=== PATIENT | male | born 1955 | race Caucasian/White ===

== ENCOUNTER 2023-02-06 23:43 | Observation (INO) ==
[2023-02-07 00:05] VITALS: BMI 30.8
[2023-02-07 00:14] LABS: BASOPHILS % (AUTO) 0.4 % (0.2-1.0); EOSINOPHILS % (AUTO) 0.6 % (0.9-2.9); HEMATOCRIT 40.7 % (42.0-54.0); LYMPHOCYTES # (AUTO) 1.7 X10^3/uL (1.3-2.9); LYMPHOCYTES % (AUTO) 27.4 % (21.0-51.0); MEAN CORPUSCULAR HEMOGLOBIN 31.2 pg (27.0-34.0); MEAN CORPUSCULAR HGB CONC 34.5 g/dL (33.0-35.0); MEAN CORPUSCULAR VOLUME 90.3 fL (80.0-100.0); MONOCYTES # (AUTO) 0.7 x10^3/uL (0.3-0.8); MONOCYTES % (AUTO) 11.2 % (0.0-13.0); NEUTROPHILS # (AUTO) 3.8 x10^3/uL (2.2-4.8); NEUTROPHILS % (AUTO) 60.4 % (42.0-75.0); PLATELET COUNT 134 X10^3/uL (150.0-450.0); RED BLOOD COUNT 4.51 X10^6/uL (4.7-6.0); RED CELL DISTRIBUTION WIDTH 13.4 % (11.6-16.5); WHITE BLOOD COUNT 6.4 X10^3/uL (3.6-10.0)
--- NOTE | 2023-02-07 00:16 | EKG ---
Test Reason : weakness Blood Pressure : */* mmHG Vent. Rate : 75 BPM Atrial Rate : 75 BPM P-R Int : 182 ms QRS Dur : 142 ms QT Int : 430 ms P-R-T Axes : 24 -30 102 degrees QTc Int : 480 ms Sinus rhythm with fusion complexes and premature atrial complexes with aberrant conduction Left axis deviation Left bundle branch block Abnormal ECG No previous ECGs available Confirmed by Sujit Patino ([id number]) on 02/07/2023 7:33:58 AM Referred By: Confirmed By: Sujit Patino
--- NOTE | 2023-02-07 00:26 | DR.DIZZY ---
HPI Time seen Time Seen by Provider: 02/07/23 00:05 PCP Primary Care Physician: ZACHERY Complaint Chief Complaint Doctor Comments: WEAKNESS AND NUMBNESS TO LEFT ARM AND LEG FOR 10 HOURS. HAS H/O CVA 10 YEARS AGO WITH R SIDE WEAKNESS. Chief Complaint:: PT IN ED VIA WHEELCHAIR WITH C/O WEAKNESS AND NUMBNESS TO LEFT ARM AND LEG SINCE AROUND 2:30PM. PT STATES HE WAS HOLDING HIS TABLET WHEN THE LEFT SIDE OF HIS BODY WENT NUMB AND WEAK, HE DROPPED HIS TABLET AND FELL. COVID-19 Coronavirus risk:travel/contact w/high risk person: No Has patient experienced Coronavirus symptoms: No Source History Provided: Patient and Family Member Mode of Arrival Mode of Arrival: Wheelchair Timing Onset of Chief Complaint: 02/06/23 Context Stroke Symptoms: Weakness of limb PMH PMH Past Medical History: Yes Past Medical History: Anxiety, Arthritis, COPD, Coronary Artery Disease, CVA, Dyslipidemia, Migraines, GERD, Headaches, Hypertension, RI and Seizures Past Medical History Comment: OSTEOPOROSIS BPH SUBDURAL HEMATOMA Past Surgical History: Yes Surgical History: CABG/Valve Surgery, Ortho Surgery and Tonsillectomy Past Surgical History Comment: BILATERAL KNEES LEFT FOOT PPM Family History History of Family Medical Conditions: Yes Family Medical History: Diabetes Mellitus, RI, Coronary Artery Disease, Heart Failure and Hypertension Social History Does patient currently use any type of tobacco product: Yes Have you used tobacco products in the last 12 months: Yes Type of Tobacco Use: Cigars Does any household member use tobacco: No Alcohol Use: None Do you use any recreational Drugs:: No Lives With: Spouse Lives Where: Home Travel Risk Coronavirus risk:travel/contact w/high risk person: No Has patient experienced Coronavirus symptoms: No Infectious screening In the last 2 months have you had wt loss of >10#?: NO Have you had fever, night sweats or hemotysis?: No Have you traveled outside the country in the last 6 months?: No Isolation: Standard ROS Review of Systems Constitutional: Other (LEFT SIDED WEAKNESS) Eyes: No Symptoms Reported ENTM: No Symptoms Reported Respiratoy: No Symptoms Reported Cardiovascular: No Symptoms Reported Gastrointestinal/Abdominal: No Symptoms Reported Genitourinary: No Symptoms Reported Neurological: Other (LEFT SIDE WEAKNESS) Musculoskeletal: No Symptoms Reported Integumentary: No Symptoms Reported Hematologic/Lymphatic: No Symptoms Reported Endocrine: No Symptoms Reported Psychiatric: No Symptoms Reported PE Vital Signs Vitals: Vital Signs Temperature 98.0 F Pulse Rate [Right] 63 Pulse Rate [Right] 63 Pulse Rate [Right] 80 Pulse Rate 84 Respiratory Rate 20 Respiratory Rate 20 Respiratory Rate 20 Blood Pressure [Left Arm] 127/72 Blood Pressure [Left Arm] 124/78 Blood Pressure [Left Arm] 119/77 Blood Pressure [Left Arm] 143/81 Blood Pressure 161/89 O2 Sat by Pulse Oximetry 92 O2 Sat by Pulse Oximetry 95 General Limitations: Physical Limitation (MINIMAL PHYSICL LIMITATIONS,DID HAVE SOME L SIDE WEAKNESS) General Appearance: In Distress (MILD DISTRESS) Head Head Exam: Normal Inspection, Atraumatic and Normocephalic Eyes Eye exam: Normal Appearance, PERRL and EOMI Pupils: Regular, Round: Bilateral Sclera/Conjunctival: Normal Inspection: Bilateral ENT ENT Exam: Normal Exam, Normal Oropharynx and Normal External Ear Exam Neck Neck Exam: Normal Inspection, Full ROM and Trachea Midline Chest Chest Inspection: Normal Inspection and Symmetric Chest Wall Rise Respiratory Respiratory Exam: Normal Lung Sounds Bilat Cardiovascular Cardiovascular Exam: Regular Rate and Normal Rhythm Abdominal Exam Abdominal Exam: Normal Inspection, Normal Bowel Sounds and Soft Rectal Rectal Exam: Deferred Neurologic Neurological Exam: Alert, Oriented X3 and CN II-XII Intact Patient Oriented To: Person, Place and Time Speech: Fluid Speech Cranial Nerve Exam: EOM Function (II, III, IV, ): Normal Cerebellar Function: Finger to Nose: Left Abnormal (LEFT FINGER WENT PAST HIS NOSE) Cerebellar Function: Ataxic Gait Motor Strength - LUE: 4/5 Motor Strength - RUE: 5/5 Motor Strength - LLE: 4/5 Motor Strength - RLE: 5/5 Psychiatric Psychiatric Exam: Normal Affect Skin Skin Exam: Warm, Dry and Intact MDM Differential Diagnosis Differential Diagnosis: CVA, Dehydration, TIA and Central Vertigo COURSE Treatment Treatment: PATIENT REMAINED RELATIVELY STABLE DURING ER EVALUATION.CT OF BRAIN SHOWED NO ACUTE INTRACRANIAL PROCESS. SSUGGGEST MRI OF FOR FURTHER EVALUATION IF CLIINICAL EVALUATION SUPPROTS,PATIENT IS NOT CANDIDATE FOR MRI SINCE HE HAS A PACEMAKER. THE PATIENT CAN GET A REPEAT CT OF BRAIN IN 24 HOURS AND DOO NEURO CHECKS. SPOKE TO DR GRACIA AT 0322 AND HE ACCEPTED THE PATIENT TO OBSERVTION TO REPEAT CT OF BRAIN. PATIENT INITIALLY DID NOT WANT TO GO THIS ROUTE BUT HE CHANGED HIS MIND AFTER SPEAKING TO HIS COUSIN. ROR Labs Reviewed Laboratory Results Reviewed?: Yes Result Diagrams: 02/06/23 11:56 02/06/23 11:56 Laboratory: WBC 6.4 X10^3/uL (3.6-10.0) 02/06/23 11:56 RBC 4.51 X10^6/uL (4.7-6.0) L 02/06/23 11:56 Hgb 14.0 g/dL (13.5-18.0) 02/06/23 11:56 Hct 40.7 % (42.0-54.0) L 02/06/23 11:56 MCV 90.3 fL (80.0-100.0) 02/06/23 11:56 MCH 31.2 pg (27.0-34.0) 02/06/23 11:56 MCHC 34.5 g/dL (33.0-35.0) 02/06/23 11:56 RDW 13.4 % (11.6-16.5) 02/06/23 11:56 Plt Count 134 X10^3/uL (150.0-450.0) L 02/06/23 11:56 MPV 9.0 fL (7.4-11.0) 02/06/23 11:56 Neut % (Auto) 60.4 % (42.0-75.0) 02/06/23 11:56 Lymph % (Auto) 27.4 % (21.0-51.0) 02/06/23 11:56 [place] % (Auto) 11.2 % (0.0-13.0) 02/06/23 11:56 Eos % (Auto) 0.6 % (0.9-2.9) L 02/06/23 11:56 Baso % (Auto) 0.4 % (0.2-1.0) 02/06/23 11:56 Neut # (Auto) 3.8 x10^3/uL (2.2-4.8) 02/06/23 11:56 Lymph # (Auto) 1.7 X10^3/uL (1.3-2.9) 02/06/23 11:56 [place] # (Auto) 0.7 x10^3/uL (0.3-0.8) 02/06/23 11:56 Eos # (Auto) 0.0 x10^3/uL (0.0-0.2) 02/06/23 11:56 Baso # (Auto) 0.0 X10^3/uL (0.0-0.1) 02/06/23 11:56 Absolute Nucleated RBC 0.2 /100WBC 02/06/23 11:56 PT 13.2 SECONDS (11.8-14.3) 02/06/23 11:56 INR Target Range - 02/06/23 11:56 INR 1.02 (0.8-1.3) 02/06/23 11:56 APTT 28.3 SECONDS (22.9-36.5) 02/06/23 11:56 PTT Comment - 02/06/23 11:56 Sodium 139 mmol/L (136-145) 02/06/23 11:56 Corrected Sodium TNP 02/06/23 11:56 Potassium 3.4 mmol/L (3.5-5.1) L 02/06/23 11:56 Chloride 103 mmol/L (98-107) 02/06/23 11:56 Carbon Dioxide 26.6 mmol/L (21-32) 02/06/23 11:56 BUN 14 mg/dL (7-18) 02/06/23 11:56 Creatinine 1.39 mg/dL (0.70-1.30) H 02/06/23 11:56 Est GFR (MDRD) Af Amer > 60 (>60) 02/06/23 11:56 Est GFR (MDRD) Non-Af 54 (>60) L 02/06/23 11:56 Glucose 100 mg/dL (65-99) H 02/06/23 11:56 Calcium 8.5 mg/dL (8.5-10.1) 02/06/23 11:56 Corrected Calcium TNP 02/06/23 11:56 Total Bilirubin 0.60 mg/dL (0.2-1.0) 02/06/23 11:56 AST 15 Units/L (15-37) 02/06/23 11:56 ALT 17 Units/L (12-78) 02/06/23 11:56 Alkaline Phosphatase 75 Units/L (46-116) 02/06/23 11:56 Creatine Kinase 82 Units/L (39-308) 02/06/23 11:56 Troponin I High Sens 46.9 ng/L (4.0-60.0) 02/06/23 11:56 Total Protein 7.0 g/dL (6.4-8.2) 02/06/23 11:56 Albumin 4.2 g/dL (3.4-5.0) 02/06/23 11:56 Globulin 2.8 g/dL (2.5-4.5) 02/06/23 11:56 Albumin/Globulin Ratio 1.5 Ratio (1.1-2.1) 02/06/23 11:56 Opioid Opioid Risk Tool Age (Sy box if 16-45): No History of Preadolescent Sexual Abuse: No Total: 0 Total Score Risk Category: Low Risk Copyright: Jl PADILLA predicting aberrant behaviors Discharge Plan Diagnosis Discharge Problem: Brain TIA, Mild congestive heart failure Discharge Plan Patient Disposition: 09 ADMITTED INPATIENT Condition: Stable Prescriptions: No Action tamsulosin 0.4 mg capsule 0.4 mg PO QHS 30 Days Qty: 30 6RF diclofenac sodium 75 mg tablet,delayed release (DR/EC) 75 mg PO BID 30 Days Qty: 60 3RF clonidine HCl 0.1 mg tablet 0.1 mg PO TID Qty: 90 3RF fenofibrate nanocrystallized 145 mg tablet 145 mg PO QDAY Qty: 30 3RF simvastatin 80 mg tablet 80 mg PO QHS Qty: 30 3RF clopidogrel 75 mg tablet 75 mg PO QDAY Qty: 30 3RF budesonide-formoterol [Symbicort] 160-4.5 mcg/actuation HFA aerosol inhaler 2 puff inhalation BID Qty: 10.2 3RF Rx Instructions: 2 Puffs two times daily. spironolactone 25 mg tablet 25 mg PO QDAY Qty: 30 5RF carvedilol 12.5 mg tablet 12.5 mg PO BID Qty: 60 5RF tizanidine 4 mg tablet 4 mg PO Q8H PRN (Reason: muscle spasticity) Qty: 90 5RF divalproex 250 mg tablet extended release 24 hr 750 mg PO QDAY Qty: 90 3RF montelukast 10 mg tablet 10 mg PO QDAY Qty: 90 3RF fluocinonide 0.05 % solution 1 applic topical BID-QID PRN (Reason: rash) Qty: 60 3RF Rx Instructions: Apply 2-3 mg to affected area topically every day. oxycodone-acetaminophen 10-325 mg tablet 1 tab PO Q6H MDD 4 PRN (Reason: pain) 30 Days Qty: 120 0RF nitroglycerin 0.4 mg tablet, sublingual 0.4 mg sublingual Q5-15M Qty: 100 2RF enalapril maleate 10 mg tablet 1 tab PO QDAY amlodipine 10 mg tablet 1 tab PO QDAY Health Concerns: Post Hospitalization: new medications and changes needed to prevent readmission or further decline. Pt educated and given instructions on all concerns. Plan of Treatment: Continue with present treatment and follow up plan. Pt is to keep follow up appointment as instructed and take medications as ordered. Orders to Discharge Patient Discharge Orders: Transfer (Routine); Ordered 02/07/23 Ordered By: Hunter Noyola Follow ups/Referrals Follow ups/Referrals: TONY BINGHAM [Primary Care Provider] - 3 days
[2023-02-07 00:29] LABS: INR 1.02 (0.8-1.3)
[2023-02-07 00:37] LABS: ALANINE AMINOTRANSFERASE 17 Units/L (12-78); ALBUMIN 4.2 g/dL (3.4-5.0); ALKALINE PHOSPHATASE 75 Units/L (46-116); ASPARTATE AMINO TRANSFERASE 15 Units/L (15-37); BLOOD UREA NITROGEN 14 mg/dL (7-18); CALCIUM 8.5 mg/dL (8.5-10.1); CARBON DIOXIDE 26.6 mmol/L (21-32); CHLORIDE 103 mmol/L (98-107); CREATINE KINASE 82 Units/L (39-308); CREATININE 1.39 mg/dL (0.70-1.30); GLUCOSE 100 mg/dL (65-99); POTASSIUM 3.4 mmol/L (3.5-5.1); SODIUM 139 mmol/L (136-145); eGFR NON BLACK RACES 54 (>60)
--- NOTE | 2023-02-07 00:41 | CT ---
HISTORYLT SIDE WEAKNESS, possible strokeSTUDYBRAIN W/O CONCOMPARISONNoneTECHNIQUEMult iple axial images of the head without contrast. Dose reduction techniques including Automated Exposure Control (AEC) and adjustment of mA and kV were utilized.FINDINGSGeneralized brain atrophy. Microvascular ischemic changes in the bilateral white matter. Hypodensity right conte radiata suggesting remote ischemia. Prior left frontal and parietal craniotomy defects. Intracranial atherosclerotic calcifications. Middle ears are clear. No sinus air-fluid levels.IMPRESSIONNo acute intracranial process. Chronic brain changes.Electronically signed by: Zachariah Yoder (Feb 07, 2023 00:40:24)
--- NOTE | 2023-02-07 01:33 | RAD ---
HISTORYLT SIDE WEAKNESS C/O WEAKNESS AND NUMBNESS TO LEFT ARM AND LEG SINCE AROUND 2:30PM. PT STATES HE WAS HOLDING HIS TABLET WHEN THE LEFT SIDE OF HIS BODY WENT NUMB AND WEAK, HE DROPPED HIS TABLET AND FELL.STUDYCHEST, 1 VIEWCOMPARISONNoneFINDINGSPacemaker with power pack on the right. Median sternotomy wires. Midline trachea. The heart is enlarged. Pulmonary vascular congestion.IMPRESSIONCongestive heart failureElectronically signed by: Zachariah Yoder (Feb 07, 2023 01:31:19)
[2023-02-07] MEDS ORDERED: PATIENT'S HOME MEDICATION (Oxycodone-Acetaminophen 10-325 mg tablet) PO PRN (04:28)
[2023-02-07] MEDS ORDERED: ZANAFLEX PO PRN (04:28)
[2023-02-07] MEDS ORDERED: NORCO 10/325 TAB PO PRN (04:34)
[2023-02-07] MEDS ORDERED: NITROSTAT SL PRN (05:00)
[2023-02-07] MEDS: CATAPRES TAB 0.1 MG PO SCH ×3 (05:20→22:15)
[2023-02-07] MEDS: NICOTINE PATCH TD SCH (05:21)
[2023-02-07 05:52] LABS: BASOPHILS % (AUTO) 0.5 % (0.2-1.0); EOSINOPHILS # (AUTO) 0.1 x10^3/uL (0.0-0.2); EOSINOPHILS % (AUTO) 0.8 % (0.9-2.9); HEMATOCRIT 41.7 % (42.0-54.0); HEMOGLOBIN 14.5 g/dL (13.5-18.0); LYMPHOCYTES # (AUTO) 1.8 X10^3/uL (1.3-2.9); LYMPHOCYTES % (AUTO) 28.4 % (21.0-51.0); MEAN CORPUSCULAR HEMOGLOBIN 31.1 pg (27.0-34.0); MEAN CORPUSCULAR HGB CONC 34.7 g/dL (33.0-35.0); MEAN CORPUSCULAR VOLUME 89.8 fL (80.0-100.0); MEAN PLATELET VOLUME 9.4 fL (7.4-11.0); MONOCYTES # (AUTO) 0.7 x10^3/uL (0.3-0.8); MONOCYTES % (AUTO) 11.5 % (0.0-13.0); NEUTROPHILS # (AUTO) 3.7 x10^3/uL (2.2-4.8); NEUTROPHILS % (AUTO) 58.8 % (42.0-75.0); PLATELET COUNT 141 X10^3/uL (150.0-450.0); RED BLOOD COUNT 4.65 X10^6/uL (4.7-6.0); RED CELL DISTRIBUTION WIDTH 13.8 % (11.6-16.5); WHITE BLOOD COUNT 6.2 X10^3/uL (3.6-10.0)
[2023-02-07 05:58] LABS: ALANINE AMINOTRANSFERASE 18 Units/L (12-78); ALBUMIN 4.3 g/dL (3.4-5.0); ALKALINE PHOSPHATASE 78 Units/L (46-116); ASPARTATE AMINO TRANSFERASE 15 Units/L (15-37); BLOOD UREA NITROGEN 14 mg/dL (7-18); CALCIUM 8.7 mg/dL (8.5-10.1); CARBON DIOXIDE 26.6 mmol/L (21-32); CHLORIDE 102 mmol/L (98-107); CREATININE 1.27 mg/dL (0.70-1.30); GLUCOSE 101 mg/dL (65-99); MAGNESIUM 2.1 mg/dL (2.0-2.9); POTASSIUM 3.2 mmol/L (3.5-5.1); SODIUM 139 mmol/L (136-145); TOTAL PROTEIN 7.4 g/dL (6.4-8.2); eGFR NON BLACK RACES 60 (>60)
[2023-02-07 06:53] LABS: BILIRUBIN,URINE NEGATIVE (NEGATIVE); BLOOD/HEMOGLOBIN,URINE NEGATIVE (NEGATIVE); GLUCOSE, URINE NEGATIVE (NEGATIVE); KETONES,URINE NEGATIVE (NEGATIVE); LEUKOCYTE ESTERASE ,URINE NEGATIVE (NEGATIVE); NITRITES,URINE NEGATIVE (NEGATIVE); PH,URINE 6.5 (5.0 - 8.0); PROTEIN,URINE NEGATIVE (NEGATIVE); UROBILINOGEN,URINE NORMAL (NORMAL)
[2023-02-07 06:55] LABS: APPEARANCE,URINE CLEAR (CLEAR); COLOR,URINE STRAW (YELLOW)
[2023-02-07] MEDS ORDERED: CONSULT PHARMACY - POTASSIUM & MAGNESIUM XX SCH (07:00)
[2023-02-07] MEDS: PULMICORT NEB TX 0.5 MG NEB SCH ×2 (08:54→20:30)
[2023-02-07] MEDS: PROVENTIL NEB TX 0.083% 2.5MG/ 3ML NEB SCH ×2 (08:54→20:30)
[2023-02-07] MEDS ORDERED: PATIENT'S HOME MEDICATION (Budesonide-Formoterol [Symbicort] 160-4.5 mcg/actuation HFA aer IN SCH (09:00)
[2023-02-07] MEDS ORDERED: NICOTINE PATCH TD SCH (09:00)
[2023-02-07] MEDS ORDERED: DICLOFENAC SODIUM 75 MG PO SCH (09:00)
[2023-02-07] MEDS ORDERED: DIVALPROEX 250 MG PO SCH (09:00)
[2023-02-07] MEDS: COREG TAB 12.5 MG PO SCH ×2 (09:36→20:44)
[2023-02-07] MEDS: TRICOR TAB 145 MG PO SCH (09:36)
[2023-02-07] MEDS: ALDACTONE TAB 25 MG PO SCH (09:36)
[2023-02-07] MEDS: SINGULAIR TAB 10 MG PO SCH (09:36)
[2023-02-07] MEDS: PLAVIX PO SCH (09:36)
[2023-02-07] MEDS: NORVASC TAB 10 MG PO SCH (09:36)
[2023-02-07] MEDS: K-DUR TAB 20 MEQ PO SCH ×2 (09:36→12:19)
[2023-02-07] MEDS: VASOTEC TAB 10 MG PO SCH (09:37)
[2023-02-07] MEDS ORDERED: DIVALPROEX 250 MG PO PRN (10:00)
[2023-02-07] MEDS ORDERED: PERCOCET TAB 5/325 MG PO PRN (10:00)
[2023-02-07] MEDS ORDERED: LASIX IVP SCH (11:00)
[2023-02-07] MEDS: PATIENT'S HOME MEDICATION PO PRN ×2 (16:30→22:00)
[2023-02-07] MEDS: ZOCOR TAB 40 MG PO SCH (20:45)
[2023-02-07] MEDS: FLOMAX PO SCH (20:45)
[2023-02-07] MEDS ORDERED: SIMVASTATIN 80 MG PO SCH (21:00)
--- NOTE | 2023-02-07 21:04 | DR.H&P ---
H&P - History & Physical for Day of: H&P Date: 02/07/23 - Chief Complaint Chief Complaint: WEAKNESS AND NUMBNESS TO LEFT ARM AND LEG - History of Present Illness History of Present Illness: IS A 67 YEAR OLD PATIENT OF . HE HAS A PMH OF ANXIETY, ARTHRITIS, COPD, CAD, CVA, DYSLIPIDEMIA, MIGRAINES, GERD, HEADACHES, HTN, [place], SEIZURES, OSTEOPOROSIS, CABG, TONSILLECTOMY, AND BILATERAL KNEE PAIN. HE PRESENTED TO THE ER WITH COMPLAINTS OF WEAKNESS AND NUMBNESS TO THE LEFT ARM AND LEG. HE REPORTS THAT SYMPTOMS STARTED ABOUT 10 HOURS PRIOR TO ARRIVAL. HE REPORTS THAT HE WAS STANDING UP HOLDING HIS TABLET WHEN THE SYMPTOMS STARTED. HE DROPPED THE TABLET AND FELL. HE REPORTS HAVING UNSTEADY GAIT SINCE THEN. HE DENIES CHEST PAIN OR SHORTNESS OF BREATH. ON ARRIVAL, HIS VITALS WERE: 98.0-84-20-95%-161/89. LABS WERE OBTAINED. WBC 6.4, RBC 4.51, HGB 14.0, HCT 40.7, PLT COUNT 134, PT 132.2, INR 1.02, SODIUM 139, POTASSIUM 3.4, CHLORIDE 103, BUN 14, CREATININE 1.39, GLUCOSE 100, CALCIUM 8.5, TOTAL BILI 0.60, AST 15, ALT 17, ALK PHOS 75, CREATINE KINASE 82, TROPONIN 46.9, TOTAL PROTEIN 7.0, ALBUMIN 4.2. A URINALYSIS WAS OBTAINED AND WAS UNREMARKABLE. A BRAIN CT WAS OBTAINED AND REVEALED: No acute intracranial process. Chronic brain changes. A CHEST XRAY WAS OBTAINED AND REVEALED: Congestive heart failure. EKG WAS OBTAINED AND REVEALED: SINUS RHYTHM WITH FUSION COMPLEXES AND PREMATURE ATRIAL COMPLEXES WITH ABERRANT CONDUCTION. HR 75 BPM. HE WAS ADMITTED TO THE HOSPTIAL FOR FURTHER EVALUATION AND TREATMENT OF TIA, MILD CHF, AND HYPOKALEMIA. HE WAS STARTED ON LASIX 40MG IV DAILY, ALBUTEROL NEBS BID, PULMICORT NEBS BID, NICOTINE PATCH 21MG DAILY, AND HIS HOME MEDICATIONS WERE RESUMED. HOME MEDS INCLUDE: NORVASC, COREG, CATAPRES, PLAVIX, VASOTEC, TRICOR, SINGULAIR, NITROSTAT PRN, ZOCOR, ALDACTONE, FLOMAX, ZANAFLEX, PERCOCET, DIVALPROEX. OTHERWISE, WE WILL FOLLOW-UP WITH AM LABS AND CHEST XRAY AND CONTINUE TO MONITOR. TIME SPENT ON CLINICAL ASSESSMENT, REVIEWING LABS AND IMAGING, DECISION MAKING, AND DOCUMENTATION GREATER THAN 75 MINUTES. - Past Medical History Past Medical History: [place], Coronary Artery Disease, Hypertension, Dyslipidemia, Anxiety, CVA, Seizures, COPD, GERD, Arthritis, Migraines, Headaches - Past Surgical History Surgical History: CABG/Valve Surgery, Ortho Surgery, Tonsillectomy - Family History Family Medical History: Diabetes Mellitus, [place], Heart Failure, Hypertension - Social History Does patient currently use any type of tobacco product: Yes Have you used tobacco products in the last 12 months: Yes Type of Tobacco Use: Cigars Does any household member use tobacco: No Alcohol Use: None Drug Use: None - Review of Systems Constitutional: Weakness Eyes: No Symptoms Reported ENT: No Symptoms Reported Respiratory: No Symptoms Reported Cardiovascular: No Symptoms Reported Gastrointestinal: No Symptoms Reported Genitourinary: No Symptoms Reported Musculoskeletal: No Symptoms Reported Skin: No Symptoms Reported Neurological: See HPI, Weakness, Other (WEAKNESS AND NUMBNESS TO LEFT ARM AND LEG) - Physical Exam Vital Signs: Vital Signs Temperature 97.7 F Temperature 97.4 F Pulse Rate [Right] 86 Pulse Rate [Right] 76 Respiratory Rate 18 Respiratory Rate 18 Blood Pressure [Left Arm] 108/69 Blood Pressure [Left Arm] 121/74 O2 Sat by Pulse Oximetry 96 O2 Sat by Pulse Oximetry 94 Oriented: Normal Eyes: Normal Ear: Normal Nose: Normal Throat: Normal Respiratory: Diminished Throughout Cardiovascular: Normal : Normal Auscultation: Bowel Sounds: Normal Palpation: Normal Tenderness: Normal Skin: Normal Musculoskeletal: Left, Arm, Leg, Sensory Deficit Psychiatric: Normal Mood Description: Calm Affect: Normal Speech Pattern: Clear - Assessment/Plan (1) Brain TIA Status: Acute Plan: ADMIT, LASIX 40MG IV DAILY, ALBUTEROL NEBS BID, PULMICORT NEBS BID, NICOTINE PATCH 21MG DAILY, RESUME HOME MEDS (2) Mild congestive heart failure Status: Acute Plan: LASIX 40MG IV DAILY, RESUME COREG, ALDACTONE (3) Left-sided weakness Status: Acute (4) Unsteady gait Status: Acute (5) HTN (hypertension) Qualifiers: Hypertension type: primary hypertension Qualified Code(s): I10 - Essential (primary) hypertension Status: Chronic Plan: RESUME NORVASC, VASOTEC (6) Hyperlipidemia Qualifiers: Hyperlipidemia type: mixed hyperlipidemia Qualified Code(s): E78.2 - Mixed hyperlipidemia Status: Chronic Plan: CONTINUE TRICOR, ZOCOR (7) Coronary artery disease Qualifiers: Coronary Disease-Associated Artery/Lesion type: bypass graft [place] vs. transplanted heart: [place] heart Associated angina: without angina Qualified Code(s): I25.810 - Atherosclerosis of coronary artery bypass graft(s) without angina pectoris Status: Chronic Plan: CONTINUE PLAVIX (8) BPH (benign prostatic hyperplasia) Qualifiers: Lower urinary tract symptom presence: symptoms absent Qualified Code(s): N40.0 - Benign prostatic hyperplasia without lower urinary tract symptoms Status: Chronic Plan: CONTINUE TAMSULOSIN (9) Seizure disorder Status: Chronic Plan: CONTINUE DIVALPROEX - Review H&P Reviewed: Yes Patient was examined?: Yes - Allergies Allergies/Adverse Reactions: Allergies Allergy/AdvReac Type Severity Reaction Status Date / Time codeine Allergy Unknown Verified 12/12/22 12:12 levofloxacin [Levaquin] Allergy Unknown Verified 12/12/22 12:12 morphine Allergy Unknown Verified 12/12/22 12:12 - Medications Home Medications: Home Medications Medication Instructions Recorded Confirmed amlodipine 10 mg tablet 1 tab PO QDAY 02/06/23 02/06/23 enalapril maleate 10 mg tablet 1 tab PO QDAY 02/06/23 02/06/23 Previous Rx's Medication Instructions Recorded tamsulosin 0.4 mg capsule 0.4 mg PO QHS 30 days #30 caps 10/10/22 clonidine HCl 0.1 mg tablet 0.1 mg PO TID #90 tabs 11/06/22 clopidogrel 75 mg tablet 75 mg PO QDAY #30 tabs 11/06/22 diclofenac sodium 75 mg 75 mg PO BID 30 days #60 tabs 11/06/22 tablet,delayed release fenofibrate nanocrystallized 145 145 mg PO QDAY #30 tabs 11/06/22 mg tablet simvastatin 80 mg tablet 80 mg PO QHS #30 tabs 11/06/22 budesonide-formoterol HFA 160 2 puff inhalation BID #10.2 grams 12/09/22 mcg-4.5 mcg/actuation aerosol inhaler (Symbicort) carvedilol 12.5 mg tablet 12.5 mg PO BID #60 tabs 12/10/22 spironolactone 25 mg tablet 25 mg PO QDAY #30 tabs 12/10/22 tizanidine 4 mg tablet 4 mg PO Q8H PRN muscle spasticity 12/10/22 #90 tabs divalproex 250 mg tablet,extended 750 mg PO QDAY #90 tabs 01/01/23 release 24 hr montelukast 10 mg tablet 10 mg PO QDAY #90 tabs 01/01/23 fluocinonide 0.05 % topical 1 applic topical BID-QID PRN rash 01/27/23 solution #60 mL nitroglycerin 0.4 mg sublingual 0.4 mg sublingual Q5-15M #100 tabs 01/29/23 tablet oxycodone-acetaminophen 10 mg-325 1 tab PO Q6H PRN pain 30 days #120 01/29/23 mg tablet tabs
[2023-02-08] MEDS: PATIENT'S HOME MEDICATION PO PRN ×4 (04:19→21:50)
[2023-02-08 05:12] LABS: BASOPHILS % (AUTO) 0.4 % (0.2-1.0); EOSINOPHILS % (AUTO) 0.7 % (0.9-2.9); HEMATOCRIT 37.9 % (42.0-54.0); HEMOGLOBIN 13.1 g/dL (13.5-18.0); LYMPHOCYTES # (AUTO) 1.8 X10^3/uL (1.3-2.9); MEAN CORPUSCULAR HEMOGLOBIN 31.1 pg (27.0-34.0); MEAN CORPUSCULAR HGB CONC 34.6 g/dL (33.0-35.0); MEAN CORPUSCULAR VOLUME 89.9 fL (80.0-100.0); MEAN PLATELET VOLUME 9.2 fL (7.4-11.0); MONOCYTES # (AUTO) 0.8 x10^3/uL (0.3-0.8); MONOCYTES % (AUTO) 13.5 % (0.0-13.0); NEUTROPHILS # (AUTO) 3.1 x10^3/uL (2.2-4.8); NEUTROPHILS % (AUTO) 53.4 % (42.0-75.0); PLATELET COUNT 129 X10^3/uL (150.0-450.0); RED BLOOD COUNT 4.21 X10^6/uL (4.7-6.0); RED CELL DISTRIBUTION WIDTH 13.8 % (11.6-16.5); WHITE BLOOD COUNT 5.8 X10^3/uL (3.6-10.0)
[2023-02-08 05:27] LABS: ALANINE AMINOTRANSFERASE 17 Units/L (12-78); ALBUMIN 3.9 g/dL (3.4-5.0); ALKALINE PHOSPHATASE 69 Units/L (46-116); ASPARTATE AMINO TRANSFERASE 14 Units/L (15-37); BLOOD UREA NITROGEN 23 mg/dL (7-18); CALCIUM 8.2 mg/dL (8.5-10.1); CARBON DIOXIDE 24.8 mmol/L (21-32); CHLORIDE 105 mmol/L (98-107); CREATININE 2.13 mg/dL (0.70-1.30); GLUCOSE 103 mg/dL (65-99); POTASSIUM 3.6 mmol/L (3.5-5.1); SODIUM 141 mmol/L (136-145); TOTAL PROTEIN 6.7 g/dL (6.4-8.2); eGFR NON BLACK RACES 33 (>60)
[2023-02-08] MEDS: CATAPRES TAB 0.1 MG PO SCH ×3 (06:09→20:59)
[2023-02-08] MEDS ORDERED: CONSULT PHARMACY - POTASSIUM & MAGNESIUM XX SCH (07:00)
[2023-02-08] MEDS: PULMICORT NEB TX 0.5 MG NEB SCH ×2 (08:50→20:08)
[2023-02-08] MEDS: PROVENTIL NEB TX 0.083% 2.5MG/ 3ML NEB SCH ×2 (08:50→20:08)
[2023-02-08] MEDS ORDERED: MICRO K EXTEN CAP 10 MEQ PO SCH (09:00)
--- NOTE | 2023-02-08 09:53 | RAD ---
HISTORYShortness of breathSTUDYCHEST, 1 [id number]/01/2023FINDINGSThe trachea is midline. The cardiac silhouette is enlarged with a tortuous thoracic aorta. Prior changes of median sternotomy are observed. A pacing device overlying the right hemithorax is observed. Increased interstitial changes with prominent vascular markings are observed consistent with underlying CHF.. The bony thorax is unremarkable.IMPRESSIONSlightly improved changes of CHF with discoid atelectasis of the left base.Electronically signed by: GEE STOVALL (Feb 08, 2023 09:52:12)
[2023-02-08] MEDS: ALDACTONE TAB 25 MG PO SCH (10:00)
[2023-02-08] MEDS: VASOTEC TAB 10 MG PO SCH (10:00)
[2023-02-08] MEDS: NORVASC TAB 10 MG PO SCH (10:00)
[2023-02-08] MEDS: TRICOR TAB 145 MG PO SCH (10:00)
[2023-02-08] MEDS: PLAVIX PO SCH (10:00)
[2023-02-08] MEDS: SINGULAIR TAB 10 MG PO SCH (10:00)
[2023-02-08] MEDS: COREG TAB 12.5 MG PO SCH ×2 (10:02→20:52)
[2023-02-08] MEDS: NICOTINE PATCH TD SCH (10:08)
--- NOTE | 2023-02-08 10:58 | PCM.PROG ---
Progress Note - Progress Note for Day of Date of Exam: 02/08/23 - Subjective Subjective: IS CURRENTLY OBSERVATION STATUS FOR TREATMENT OF BRAIN TIA, CONGESTIVE HEART FAILURE, LEFT SIDED WEAKNESS, LEFT SIDED PARASTHESIA, AND UNSTEADY GAIT. HE HAS A PMH OF HTN, CHF, PACEMAKER, HYPERLIPDEMIA, CAD, BPH, AND SEIZURE DISORDER. TODAY, HE IS ALERT AND ORIENTED, LYING IN BED ON MORNING ROUNDS. HE CONTINUES TO COMPLAIN OF WEAKNESS AND TINGLING OF THE LEFT UPPER AND LOWER EXTREMITY. HE DENIES SIGNIFICANT IMPROVEMENT IN TINGLING SINCE ADMISSION. HE DOES ADMIT TO SLIGHT IMPROVEMENT IN SHORTNESS OF BREATH TODAY. UPON EXAMINATION, PATIENT IS ABLE TO ANSWER QUESTIONS AND FOLLOW INSTRUCTIONS WITHOUT DIFFICULTY. HEART IS REGULAR IN RATE AND RHYTHM. BILATERAL LUNGS ARE NOTED WITH DIMINISHED LUNG SOUNDS THROUGHOUT. ABDOMEN IS ROUND, SOFT, AND NON-TENDER WITH NORMAL BOWEL SOUNDS NOTED IN ALL QUADRANTS. GOOD RANGE OF MOTION NOTED TO UPPER AND LOWER EXTREMITIES WITH NO EDEMA NOTED. HIS VITALS THIS MORNING ARE: 97.4-52-20-91%-119/71. LABS WERE OBTAINED. WBC 5.8, RBC 4.21, HGB 13.1, HCT 37.9, PLT COUNT 129, SODIUM 141, POTASSIUM 3.6, CHLORIDE 105, BUN 23, CREATININE 2.13, GLUCOSE 103, CALCIUM 8.2, AST 14, ALT 17, ALK PHOS 69, BNP 162, TOTAL PROTEIN 6.7. A CHEST XRAY WAS REPEATED THIS MORNING AND REVEALED: Slightly improved changes of CHF with discoid atelectasis of the left base. HE IS CURRENTLY RECEIVING LASIX 40MG IV DAILY, ALBUTEROL NEBS BID, PULMICORT NEBS BID, NICOTINE PATCH 21MG DAILY, AND HIS HOME MEDICATIONS WERE RESUMED. HOME MEDS INCLUDE: NORVASC, COREG, CATAPRES, PLAVIX, VASOTEC, TRICOR, SINGULAIR, NITROSTAT PRN, ZOCOR, ALDACTONE, FLOMAX, ZANAFLEX, PERCOCET, DIVALPROEX. DUE TO ELEVATED BUN/CREATININE TODAY, WE WILL DECREASE HIS LASIX TO 20MG IV DAILY. WE PLAN TO OBTAIN A CAROTID DOPPLER, ECHOCARDIOGRAM, AND REPEAT A BRAIN CT IN THE MORNING TO RULE OUT CVA. HE CAN NOT HAVE A MRI DUE TO THE PACEMAKER. OTHERWISE, WE WILL FOLLOW-UP WITH AM LABS AND CHEST XRAY AND CONTINUE TO MONITOR. TIME SPENT ON CLINICAL ASSESSMENT, REVIEWING LABS AND IMAGING, DECISION MAKING, AND DOCUMENTATION GREATER THAN 45 MINUTES. - Past Medical Family Social History Past Med/Fam/Surg Hx: No changes since H&P Allergies: Allergies codeine Allergy (Unknown, Verified 12/12/22 12:12) Reason: Drug allergy levofloxacin [Levaquin] Allergy (Unknown, Verified 12/12/22 12:12) Reason: Drug allergy morphine Allergy (Unknown, Verified 12/12/22 12:12) Reason: Drug allergy - Review of Systems ROS: No change since H&P - Vital Signs and I&O's Vital Signs: Vital Signs Temperature 97.4 F Temperature 97.7 F Pulse Rate [Right] 52 Pulse Rate [Right] 73 Pulse Rate 83 Respiratory Rate 20 Respiratory Rate 20 Blood Pressure [Left Arm] 119/71 Blood Pressure [Left Arm] 99/65 O2 Sat by Pulse Oximetry 96 O2 Sat by Pulse Oximetry 91 O2 Sat by Pulse Oximetry 93 Intake and Output: Intake & Output 02/05/23 02/06/23 02/07/23 02/08/23 11:59 11:59 11:59 11:59 Intake Total 260 / 260 1180 / 1180 Output Total 300 / 300 1150 / 1150 Balance -40 / -40 - Physical Exam Oriented: Normal Eyes: Normal Ear: Normal Nose: Normal Throat: Normal Respiratory: Generalized, Diminished Cardiovascular: Normal : Normal Auscultation: Bowel Sounds: Normal Palpation: Normal Tenderness: Normal Skin: Normal Musculoskeletal: Left, Arm, Leg, Sensory Deficit Psychiatric: Normal Mood Description: Anxious Affect: Normal Speech Pattern: Clear, Appropriate - Laboratory and Diagnostics Result Diagrams: 02/08/23 04:36 02/08/23 04:36 Labs: Laboratory WBC 5.8 X10^3/uL (3.6-10.0) 02/08/23 04:36 RBC 4.21 X10^6/uL (4.7-6.0) L 02/08/23 04:36 Hgb 13.1 g/dL (13.5-18.0) L 02/08/23 04:36 Hct 37.9 % (42.0-54.0) L 02/08/23 04:36 MCV 89.9 fL (80.0-100.0) 02/08/23 04:36 MCH 31.1 pg (27.0-34.0) 02/08/23 04:36 MCHC 34.6 g/dL (33.0-35.0) 02/08/23 04:36 RDW 13.8 % (11.6-16.5) 02/08/23 04:36 Plt Count 129 X10^3/uL (150.0-450.0) L 02/08/23 04:36 MPV 9.2 fL (7.4-11.0) 02/08/23 04:36 Neut % (Auto) 53.4 % (42.0-75.0) 02/08/23 04:36 Lymph % (Auto) 32.0 % (21.0-51.0) 02/08/23 04:36 [place] % (Auto) 13.5 % (0.0-13.0) H 02/08/23 04:36 Eos % (Auto) 0.7 % (0.9-2.9) L 02/08/23 04:36 Baso % (Auto) 0.4 % (0.2-1.0) 02/08/23 04:36 Neut # (Auto) 3.1 x10^3/uL (2.2-4.8) 02/08/23 04:36 Lymph # (Auto) 1.8 X10^3/uL (1.3-2.9) 02/08/23 04:36 [place] # (Auto) 0.8 x10^3/uL (0.3-0.8) 02/08/23 04:36 Eos # (Auto) 0.0 x10^3/uL (0.0-0.2) 02/08/23 04:36 Baso # (Auto) 0.0 X10^3/uL (0.0-0.1) 02/08/23 04:36 Absolute Nucleated RBC 0.1 /100WBC 02/08/23 04:36 PT 13.2 SECONDS (11.8-14.3) 02/06/23 11:56 INR Target Range - 02/06/23 11:56 INR 1.02 (0.8-1.3) 02/06/23 11:56 APTT 28.3 SECONDS (22.9-36.5) 02/06/23 11:56 PTT Comment - 02/06/23 11:56 Sodium 141 mmol/L (136-145) 02/08/23 04:36 Corrected Sodium TNP 02/08/23 04:36 Potassium 3.6 mmol/L (3.5-5.1) 02/08/23 04:36 Chloride 105 mmol/L (98-107) 02/08/23 04:36 Carbon Dioxide 24.8 mmol/L (21-32) 02/08/23 04:36 BUN 23 mg/dL (7-18) H 02/08/23 04:36 Creatinine 2.13 mg/dL (0.70-1.30) H 02/08/23 04:36 Est GFR (MDRD) Af Amer 40 (>60) L 02/08/23 04:36 Est GFR (MDRD) Non-Af 33 (>60) L 02/08/23 04:36 Glucose 103 mg/dL (65-99) H 02/08/23 04:36 Calcium 8.2 mg/dL (8.5-10.1) L 02/08/23 04:36 Corrected Calcium TNP 02/08/23 04:36 Magnesium 2.1 mg/dL (2.0-2.9) 02/07/23 04:59 Total Bilirubin 0.50 mg/dL (0.2-1.0) 02/08/23 04:36 AST 14 Units/L (15-37) L 02/08/23 04:36 ALT 17 Units/L (12-78) 02/08/23 04:36 Alkaline Phosphatase 69 Units/L (46-116) 02/08/23 04:36 Creatine Kinase 82 Units/L (39-308) 02/06/23 11:56 Troponin I High Sens 46.9 ng/L (4.0-60.0) 02/06/23 11:56 B-Natriuretic Peptide 162 pg/mL (0-79) H 02/08/23 04:36 Total Protein 6.7 g/dL (6.4-8.2) 02/08/23 04:36 Albumin 3.9 g/dL (3.4-5.0) 02/08/23 04:36 Globulin 2.8 g/dL (2.5-4.5) 02/08/23 04:36 Albumin/Globulin Ratio 1.4 Ratio (1.1-2.1) 02/08/23 04:36 Specimen Type Clean catch urine 02/07/23 06:44 Urine Color Straw (YELLOW) 02/07/23 06:44 Urine Appearance Clear (CLEAR) 02/07/23 06:44 Urine pH 6.5 (5.0 - 8.0) 02/07/23 06:44 Ur Specific [place] 1.015 (1.000-1.030) 02/07/23 06:44 Urine Protein Negative (NEGATIVE) 02/07/23 06:44 Urine Glucose (UA) Negative (NEGATIVE) 02/07/23 06:44 Urine Ketones Negative (NEGATIVE) 02/07/23 06:44 Urine Blood Negative (NEGATIVE) 02/07/23 06:44 Urine Nitrite Negative (NEGATIVE) 02/07/23 06:44 Urine Bilirubin Negative (NEGATIVE) 02/07/23 06:44 Urine Urobilinogen Normal (NORMAL) 02/07/23 06:44 Ur Leukocyte Esterase Negative (NEGATIVE) 02/07/23 06:44 - Plan (1) Brain TIA Status: Acute Plan: ADMIT, LASIX 20MG IV DAILY, ALBUTEROL NEBS BID, PULMICORT NEBS BID, NICOTINE PATCH 21MG DAILY, RESUME HOME MEDS (2) Mild congestive heart failure Status: Acute Plan: LASIX 20MG IV DAILY, RESUME COREG, ALDACTONE (3) Left-sided weakness Status: Acute (4) Unsteady gait Status: Acute (5) HTN (hypertension) Status: Chronic Qualifiers: Hypertension type: primary hypertension Qualified Code(s): I10 - Essential (primary) hypertension Plan: RESUME NORVASC, VASOTEC (6) Hyperlipidemia Status: Chronic Qualifiers: Hyperlipidemia type: mixed hyperlipidemia Qualified Code(s): E78.2 - Mixed hyperlipidemia Plan: CONTINUE TRICOR, ZOCOR (7) Coronary artery disease Status: Chronic Qualifiers: Coronary Disease-Associated Artery/Lesion type: bypass graft [place] vs. transplanted heart: craig heart Associated angina: without angina Qualified Code(s): I25.810 - Atherosclerosis of coronary artery bypass graft(s) without angina pectoris Plan: CONTINUE PLAVIX (8) BPH (benign prostatic hyperplasia) Status: Chronic Qualifiers: Lower urinary tract symptom presence: symptoms absent Qualified Code(s): N40.0 - Benign prostatic hyperplasia without lower urinary tract symptoms Plan: CONTINUE TAMSULOSIN (9) Seizure disorder Status: Chronic Plan: CONTINUE DIVALPROEX
[2023-02-08] MEDS: FLOMAX PO SCH (20:52)
[2023-02-08] MEDS: ZOCOR TAB 40 MG PO SCH (20:53)
[2023-02-09 03:38] LABS: BASOPHILS # (AUTO) 0.1 X10^3/uL (0.0-0.1); BASOPHILS % (AUTO) 0.8 % (0.2-1.0); EOSINOPHILS # (AUTO) 0.1 x10^3/uL (0.0-0.2); EOSINOPHILS % (AUTO) 1.2 % (0.9-2.9); HEMATOCRIT 38.9 % (42.0-54.0); HEMOGLOBIN 13.4 g/dL (13.5-18.0); LYMPHOCYTES # (AUTO) 2.2 X10^3/uL (1.3-2.9); LYMPHOCYTES % (AUTO) 34.2 % (21.0-51.0); MEAN CORPUSCULAR HGB CONC 34.4 g/dL (33.0-35.0); MEAN CORPUSCULAR VOLUME 90.1 fL (80.0-100.0); MEAN PLATELET VOLUME 9.6 fL (7.4-11.0); MONOCYTES # (AUTO) 0.8 x10^3/uL (0.3-0.8); NEUTROPHILS # (AUTO) 3.4 x10^3/uL (2.2-4.8); NEUTROPHILS % (AUTO) 51.8 % (42.0-75.0); PLATELET COUNT 134 X10^3/uL (150.0-450.0); RED BLOOD COUNT 4.31 X10^6/uL (4.7-6.0); RED CELL DISTRIBUTION WIDTH 13.7 % (11.6-16.5); WHITE BLOOD COUNT 6.5 X10^3/uL (3.6-10.0)
[2023-02-09 03:47] LABS: ALANINE AMINOTRANSFERASE 18 Units/L (12-78); ALBUMIN 3.9 g/dL (3.4-5.0); ALKALINE PHOSPHATASE 69 Units/L (46-116); ASPARTATE AMINO TRANSFERASE 15 Units/L (15-37); BLOOD UREA NITROGEN 24 mg/dL (7-18); CALCIUM 8.4 mg/dL (8.5-10.1); CARBON DIOXIDE 24.6 mmol/L (21-32); CHLORIDE 104 mmol/L (98-107); COR NA(FOR HYPERGLY) 140 mmol/L (136-145); CREATININE 1.75 mg/dL (0.70-1.30); GLUCOSE 132 mg/dL (65-99); SODIUM 139 mmol/L (136-145); TOTAL PROTEIN 6.7 g/dL (6.4-8.2); eGFR NON BLACK RACES 41 (>60)
[2023-02-09] MEDS: PATIENT'S HOME MEDICATION PO PRN ×4 (03:50→22:15)
[2023-02-09] MEDS: VALIUM PO PRN (04:41)
[2023-02-09] MEDS: CATAPRES TAB 0.1 MG PO SCH ×3 (06:00→21:35)
[2023-02-09] MEDS ORDERED: LASIX ONE (07:26)
[2023-02-09] MEDS: PROVENTIL NEB TX 0.083% 2.5MG/ 3ML NEB SCH ×2 (09:10→20:20)
[2023-02-09] MEDS: PULMICORT NEB TX 0.5 MG NEB SCH ×2 (09:10→20:20)
[2023-02-09] MEDS: ALDACTONE TAB 25 MG PO SCH (10:00)
[2023-02-09] MEDS: VASOTEC TAB 10 MG PO SCH (10:00)
[2023-02-09] MEDS: NORVASC TAB 10 MG PO SCH (10:00)
[2023-02-09] MEDS: PLAVIX PO SCH (10:00)
[2023-02-09] MEDS: LASIX IVP SCH (10:17)
[2023-02-09] MEDS: TRICOR TAB 145 MG PO SCH (10:19)
[2023-02-09] MEDS: SINGULAIR TAB 10 MG PO SCH (10:19)
[2023-02-09] MEDS: COREG TAB 12.5 MG PO SCH ×2 (10:20→21:35)
[2023-02-09] MEDS: NICOTINE PATCH TD SCH (10:21)
--- NOTE | 2023-02-09 12:50 | CT ---
HISTORYTIA, MILD CHFSTUDYBRAIN W/O [id number] images through the head was performed without contrast. CT scan was performed following ALARA (As low as Reasonably Achievable).Coronal and Sagittal reformatted images were performed.FINDINGSThere is mild central and peripheral volume loss, there is periventricular hypo attenuations. There is an old lacunar infarct in the right anterior coronal radiata as well as in the anterior limb of the right internal capsule, there is no evidence of acute hemorrhage, or mass effect. There is cytotoxic edema in the posterior limb of the right internal capsule suspicious for an acute infarct.No evidence of acute fractures,the mastoid cells are clear. No evidence of sellar masses, the cervicocranial junction is unremarkable.IMPRESSIONAcute infarct involving the posterior limb of the right internal capsule. No acute hemorrhage.Electronically signed by: Monica Smart (Feb 09, 2023 12:49:35)
--- NOTE | 2023-02-09 13:48 | EKG ---
Test Reason : CVA, R/O AFIB Blood Pressure : */* mmHG Vent. Rate : 177 BPM Atrial Rate : * BPM P-R Int : * ms QRS Dur : 142 ms QT Int : 200 ms P-R-T Axes : * -31 -72 degrees QTc Int : 343 ms Atrial paced rhythm with ventricular fusion beats Left axis deviation Left bundle branch block Abnormal ECG When compared with ECG of 07-FEB-2023 00:14, Electronic ventricular pacemaker has replaced Sinus rhythm Vent. rate has increased BY 102 BPM Confirmed by Sujit Patino ([id number]) on 02/10/2023 5:52:26 PM Referred By: Confirmed By: Sujit Patino
--- NOTE | 2023-02-09 14:45 | VAS ---
HISTORYLT ARM AND LEG WEAKNESS, CVAConcern for carotid artery stenosis. [Carotid atherosclerosis].EXAM: BILATERAL DOPPLER CAROTID ULTRASOUND EXAMTechnique: Multiple loomis scale and color flow Doppler images of the right and left carotid arterial system were obtained. The vertebral arterial system was evaluated as well.Findings:Nonocclusive color flow Doppler is seen throughout the right and left carotid arterial system.No hemodynamically significant carotid arterial stenosis is seen based on velocity criteria. There is [mild] atherosclerosis and [mixed atherosclerotic] plaque formation of the bilateral carotid bulbs and ICAs with associated intimal thickening but [without] evidence for high-grade stenosis (>70%) or occlusion of the carotid arteries. The right and left vertebral artery demonstrate antegrade flow.IMPRESSION:[Mild] atherosclerosis and mixed plaque formation of the bilateral carotid bulbs and [in both] ICAs with associated carotid intimal thickening but without evidence for high-grade stenosis or occlusion of the carotid arteries, based on Doppler velocity criteria.Appropriate, antegrade, vertebral arterial flow.Peak right ICA velocity: 79 centimeter/seconds.Peak right CCA velocity: 92 centimeter/seconds.Peak left ICA velocity: 96 centimeter/seconds.Peak left CCA velocity: 104 centimeter/seconds.Right ICA to CCA ratio: 1.18.Left ICA to CCA ratio: 1.16.Electronically signed by: FARHAT CEJA III (Feb 09, 2023 14:44:27)
[2023-02-09] MEDS: LOVENOX INJ 40 MG SYR SC SCH (16:25)
--- NOTE | 2023-02-09 16:27 | RAD ---
HISTORYSOB TIA, MILD CHFSTUDYCHEST, 1 [id number]/2023FINDINGSThe trachea is midline. Mild cardiomegaly. Status post CABG. There is a right-sided pacemaker with 2 leads.. No evidence of pulmonary edema, no pleural effusions or pneumothorax. No dominant alveolar radiopacities.IMPRESSIONNo acute cardiopulmonary findings .Electronically signed by: Monica Smart (Feb 09, 2023 16:22:46)
--- NOTE | 2023-02-09 19:31 | EKG ---
Test Reason : MILD CHF, MULTIPLE PVCS Blood Pressure : */* mmHG Vent. Rate : 162 BPM Atrial Rate : * BPM P-R Int : * ms QRS Dur : 142 ms QT Int : 204 ms P-R-T Axes : * -42 131 degrees QTc Int : 334 ms Atrial paced with ventricular fusion beats Left axis deviation Left bundle branch block Abnormal ECG When compared with ECG of 09-FEB-2023 13:40, (Unconfirmed) premature ventricular complexes are now present Vent. rate has decreased BY 15 BPM Confirmed by Sujit Patino ([id number]) on 02/10/2023 5:51:29 PM Referred By: Confirmed By: Sujit Patino
[2023-02-09] MEDS: FLOMAX PO SCH (21:35)
[2023-02-09] MEDS: CRESTOR TAB 10 MG PO SCH (21:35)
--- NOTE | 2023-02-09 22:56 | PCM.PROG ---
Progress Note - Progress Note for Day of Date of Exam: 02/09/23 - Subjective Subjective: IS CURRENTLY OBSERVATION STATUS FOR TREATMENT OF BRAIN TIA, CONGESTIVE HEART FAILURE, LEFT SIDED WEAKNESS, LEFT SIDED PARASTHESIA, AND UNSTEADY GAIT. HE HAS A PMH OF HTN, CHF, PACEMAKER, HYPERLIPDEMIA, CAD, BPH, AND SEIZURE DISORDER. TODAY, HE IS ALERT AND ORIENTED, LYING IN BED ON MORNING ROUNDS. HE CONTINUES TO COMPLAIN OF WEAKNESS AND TINGLING OF THE LEFT UPPER AND LOWER EXTREMITY. HE REPORTS SLIGHT IMPROVEMENT IN SYMPTOMS TODAY. NURSES REPORT THAT PATIENT IS ABLE TO AMBULATE IN ROOM WITHOUT ASSISTANCE. HE IS STEADY ON AMBULATION. HE DENIES SHORTNESS OF BREATH THIS MORNING. UPON EXAMINATION, PATIENT IS ABLE TO ANSWER QUESTIONS AND FOLLOW INSTRUCTIONS WITHOUT DIFFICULTY. HEART IS REGULAR IN RATE AND RHYTHM. BILATERAL LUNGS ARE NOTED WITH DIMINISHED LUNG SOUNDS THROUGHOUT. ABDOMEN IS ROUND, SOFT, AND NON-TENDER WITH NORMAL BOWEL SOUNDS NOTED IN ALL QUADRANTS. GOOD RANGE OF MOTION NOTED TO UPPER AND LOWER EXTREMITIES WITH NO EDEMA NOTED. HIS VITALS THIS MORNING ARE: 97.4- 84/20/95%/135/83. LABS WERE OBTAINED. WBC 6.5, RBC 4.31, HGB 13.4, HCT 38.9, PLT COUNT 134, SODIUM 139, POTASSIUM 4.0, CHLORIDE 104, BUN 24, CREAITNINE 1.75, GLUCOSE 132, CALCIUM 8.4, AST 15, ALT 18, ALK PHOS 69, BNP 123, TOTAL PROTEIN 6.7. A CHEST XRAY WAS REPEATED THIS MORNING AND REVEALED: NO ACUTE CARDIOPULMONARY FINDINGS. A BRAIN CT WAS OBTAINED AND REVEALED: Acute infarct involving the posterior limb of the right internal capsule. No acute hemorrhage. A CAROTID ARTERY ULTRASOUND WAS OBTAINED AND REVEALED: [Mild] atherosclerosis and mixed plaque formation of the bilateral carotid bulbs and [in both] ICAs with associated carotid intimal thickening but without evidence for high-grade stenosis or occlusion of the carotid arteries, based on Doppler velocity criteria. AN ECHO WAS OBTAINED AND REVEALED: AN EJECTION FRACTION OF 44%. HE IS CURRENTLY RECEIVING LASIX 20MG IV DAILY, ALBUTEROL NEBS BID, PULMICORT NEBS BID, NICOTINE PATCH 21MG DAILY, AND HIS HOME MEDICATIONS WERE RESUMED. HOME MEDS INCLUDE: NORVASC, COREG, CATAPRES, PLAVIX, VASOTEC, TRICOR, SINGULAIR, NITROSTAT PRN, ZOCOR, ALDACTONE, FLOMAX, ZANAFLEX, PERCOCET, DIVALPROEX. TODAY, WE WILL ADD ECOTRIN 325MG DAILY AND ROSUVASTATIN 10MG HS. PHYSICAL THERAPY WILL WORK WITH HIM TODAY. OTHERWISE, WE WILL FOLLOW-UP WITH AM LABS AND CHEST XRAY AND CONTINUE TO MONITOR. TIME SPENT ON CLINICAL ASSESSMENT, REVIEWING LABS AND IMAGI NG, DECISION MAKING, AND DOCUMENTATION GREATER THAN 45 MINUTES. - Past Medical Family Social History Past Med/Fam/Surg Hx: No changes since H&P Allergies: Allergies codeine Allergy (Unknown, Verified 02/09/23 01:46) Reason: Drug allergy levofloxacin [Levaquin] Allergy (Unknown, Verified 02/09/23 01:46) Reason: Drug allergy morphine Allergy (Unknown, Verified 02/09/23 01:46) Reason: Drug allergy - Review of Systems ROS: No change since H&P - Vital Signs and I&O's Vital Signs: Vital Signs Temperature 98.1 F Pulse Rate [Right] 90 Pulse Rate 76 Respiratory Rate 19 Blood Pressure [Left Arm] 114/75 O2 Sat by Pulse Oximetry 93 O2 Sat by Pulse Oximetry 95 Intake and Output: Intake & Output 02/07/23 02/08/23 02/09/23 02/10/23 11:59 11:59 11:59 11:59 Intake Total 260 / 260 1180 / 1180 660 / 660 240 / 240 Output Total 300 / 300 1150 / 1150 1000 / 1000 Balance -40 / -40 30 / 30 -340 / -340 240 / 240 - Physical Exam Oriented: Normal Eyes: Normal Ear: Normal Nose: Normal Throat: Normal Respiratory: Generalized, Diminished Cardiovascular: Normal : Normal Auscultation: Bowel Sounds: Normal Palpation: Normal (A) Tenderness: Normal Skin: Normal Musculoskeletal: Left, Arm, Leg, Sensory Deficit Psychiatric: Normal Mood Description: Calm, Appropriate Affect: Normal Speech Pattern: Clear, Appropriate - Laboratory and Diagnostics Result Diagrams: 02/09/23 03:23 02/09/23 03:23 Labs: Laboratory WBC 6.5 X10^3/uL (3.6-10.0) 02/09/23 03:23 RBC 4.31 X10^6/uL (4.7-6.0) L 02/09/23 03:23 Hgb 13.4 g/dL (13.5-18.0) L 02/09/23 03: Hct 38.9 % (42.0-54.0) L 02/09/23 03: MCV 90.1 fL (80.0-100.0) 02/09/23 03: MCH 31.0 pg (27.0-34.0) 02/09/23 03: MCHC 34.4 g/dL (33.0-35.0) 02/09/23 03: RDW 13.7 % (11.6-16.5) 02/09/23 03: Plt Count 134 X10^3/uL (150.0-450.0) L 02/09/23: MPV 9.6 fL (7.4-11.0) 02/09/23: Neut % (Auto) 51.8 % (42.0-75.0) 02/09/23 03: Lymph % (Auto) 34.2 % (21.0-51.0) 02/09/23 03: [place] % (Auto) 12.0 % (0.0-13.0) 02/09/23 03: Eos % (Auto) 1.2 % (0.9-2.9) 02/09/23: Baso % (Auto) 0.8 % (0.2-1.0) 02/09/23: Neut # (Auto) 3.4 x10^3/uL (2.2-4.8) 02/09/23 03: Lymph # (Auto) 2.2 X10^3/uL (1.3-2.9) 02/09/23 03: [place] # (Auto) 0.8 x10^3/uL (0.3-0.8) 02/09/23: Eos # (Auto) 0.1 x10^3/uL (0.0-0.2) 02/09/23: Baso # (Auto) 0.1 X10^3/uL (0.0-0.1) 02/09/23 03: Absolute Nucleated RBC 0.0 /100WBC 02/09/23 03: PT 13.2 SECONDS (11.8-14.3) 02/06/23 11:56 INR Target Range - 02/06/23 11:56 INR 1.02 (0.8-1.3) 02/06/23 11:56 APTT 28.3 SECONDS (22.9-36.5) 02/06/23 11:56 PTT Comment - 02/06/23 11:56 Sodium 139 mmol/L (136-145) 02/09/23 03:23 Corrected Sodium 140 mmol/L (136-145) 02/09/23 03:23 Potassium 4.0 mmol/L (3.5-5.1) 02/09/23 03:23 Chloride 104 mmol/L (98-107) 02/09/23 03:23 Carbon Dioxide 24.6 mmol/L (21-32) 02/09/23 03:23 BUN 24 mg/dL (7-18) H 02/09/23 03:23 Creatinine 1.75 mg/dL (0.70-1.30) H 02/09/23 03:23 Est GFR (MDRD) Af Amer 50 (>60) L 02/09/23 03:23 Est GFR (MDRD) Non-Af 41 (>60) L 02/09/23 03:23 Glucose 132 mg/dL (65-99) H 02/09/23 03:23 Calcium 8.4 mg/dL (8.5-10.1) L 02/09/23 03:23 Corrected Calcium TNP 02/09/23 03:23 Magnesium 2.1 mg/dL (2.0-2.9) 02/07/23 04:59 Total Bilirubin 0.50 mg/dL (0.2-1.0) 02/09/23 03:23 AST 15 Units/L (15-37) 02/09/23 03:23 ALT 18 Units/L (12-78) 02/09/23 03:23 Alkaline Phosphatase 69 Units/L (46-116) 02/09/23 03:23 Creatine Kinase 82 Units/L (39-308) 02/06/23 11:56 Troponin I High Sens 46.9 ng/L (4.0-60.0) 02/06/23 11:56 B-Natriuretic Peptide 123 pg/mL (0-79) H 02/09/23 03:23 Total Protein 6.7 g/dL (6.4-8.2) 02/09/23 03:23 Albumin 3.9 g/dL (3.4-5.0) 02/09/23 03:23 Globulin 2.8 g/dL (2.5-4.5) 02/09/23 03:23 Albumin/Globulin Ratio 1.4 Ratio (1.1-2.1) 02/09/23 03:23 Specimen Type Clean catch urine 02/07/23 06:44 Urine Color Straw (YELLOW) 02/07/23 06:44 Urine Appearance Clear (CLEAR) 02/07/23 06:44 Urine pH 6.5 (5.0 - 8.0) 02/07/23 06:44 Ur Specific [place] 1.015 (1.000-1.030) 02/07/23 06:44 Urine Protein Negative (NEGATIVE) 02/07/23 06:44 Urine Glucose (UA) Negative (NEGATIVE) 02/07/23 06:44 Urine Ketones Negative (NEGATIVE) 02/07/23 06:44 Urine Blood Negative (NEGATIVE) 02/07/23 06:44 Urine Nitrite Negative (NEGATIVE) 02/07/23 06:44 Urine Bilirubin Negative (NEGATIVE) 02/07/23 06:44 Urine Urobilinogen Normal (NORMAL) 02/07/23 06:44 Ur Leukocyte Esterase Negative (NEGATIVE) 02/07/23 06:44 - Plan (1) Acute CVA (cerebrovascular accident) Status: Acute Plan: LASIX 20MG IV DAILY, NICOTINE PATCH 21MG DAILY, PLAVIX 75MG DAILY, ECOTRIN 325MG DAILY, ROSUVASTATIN 10MG HS, PT/OT, RESUME HOME MEDS (2) Mild congestive heart failure Status: Acute Plan: LASIX 20MG IV DAILY, RESUME COREG, ALDACTONE, ALBUTEROL NEBS BID, PULMICORT NEBS BID (3) Paresthesia of left arm and leg Status: Acute (4) Left-sided weakness Status: Acute (5) Unsteady gait Status: Acute Plan: PT/OT (6) HTN (hypertension) Status: Chronic Qualifiers: Hypertension type: primary hypertension Qualified Code(s): I10 - Essential (primary) hypertension Plan: RESUME NORVASC, VASOTEC (7) Hyperlipidemia Status: Chronic Qualifiers: Hyperlipidemia type: mixed hyperlipidemia Qualified Code(s): E78.2 - Mixed hyperlipidemia Plan: CONTINUE TRICOR, ZOCOR (8) Coronary artery disease Status: Chronic Qualifiers: Coronary Disease-Associated Artery/Lesion type: bypass graft [place] vs. transplanted heart: [place] heart Associated angina: without angina Qualified Code(s): I25.810 - Atherosclerosis of coronary artery bypass graft(s) without angina pectoris Plan: CONTINUE PLAVIX (9) BPH (benign prostatic hyperplasia) Status: Chronic Qualifiers: Lower urinary tract symptom presence: symptoms absent Qualified Code(s): N40.0 - Benign prostatic hyperplasia without lower urinary tract symptoms Plan: CONTINUE TAMSULOSIN (10) Seizure disorder Status: Chronic Plan: CONTINUE DIVALPROEX
[2023-02-10] MEDS: VALIUM PO PRN (01:14)
[2023-02-10] MEDS: PATIENT'S HOME MEDICATION PO PRN ×2 (04:35→22:06)
[2023-02-10] MEDS: CATAPRES TAB 0.1 MG PO SCH ×3 (05:30→21:04)
[2023-02-10 06:25] LABS: BASOPHILS % (AUTO) 0.3 % (0.2-1.0); EOSINOPHILS # (AUTO) 0.1 x10^3/uL (0.0-0.2); EOSINOPHILS % (AUTO) 1.1 % (0.9-2.9); HEMATOCRIT 38.5 % (42.0-54.0); HEMOGLOBIN 13.1 g/dL (13.5-18.0); LYMPHOCYTES # (AUTO) 1.9 X10^3/uL (1.3-2.9); LYMPHOCYTES % (AUTO) 35.4 % (21.0-51.0); MEAN CORPUSCULAR HEMOGLOBIN 30.8 pg (27.0-34.0); MEAN CORPUSCULAR HGB CONC 34.1 g/dL (33.0-35.0); MEAN CORPUSCULAR VOLUME 90.3 fL (80.0-100.0); MEAN PLATELET VOLUME 9.2 fL (7.4-11.0); MONOCYTES # (AUTO) 0.5 x10^3/uL (0.3-0.8); MONOCYTES % (AUTO) 9.4 % (0.0-13.0); NEUTROPHILS # (AUTO) 2.9 x10^3/uL (2.2-4.8); NEUTROPHILS % (AUTO) 53.8 % (42.0-75.0); PLATELET COUNT 121 X10^3/uL (150.0-450.0); RED BLOOD COUNT 4.26 X10^6/uL (4.7-6.0); RED CELL DISTRIBUTION WIDTH 13.8 % (11.6-16.5); WHITE BLOOD COUNT 5.4 X10^3/uL (3.6-10.0)
[2023-02-10 06:36] LABS: BLOOD UREA NITROGEN 26 mg/dL (7-18); CALCIUM 8.5 mg/dL (8.5-10.1); CARBON DIOXIDE 23.5 mmol/L (21-32); CHLORIDE 103 mmol/L (98-107); CREATININE 1.48 mg/dL (0.70-1.30); GLUCOSE 102 mg/dL (65-99); POTASSIUM 3.7 mmol/L (3.5-5.1); SODIUM 139 mmol/L (136-145); eGFR NON BLACK RACES 50 (>60)
[2023-02-10] MEDS: PROVENTIL NEB TX 0.083% 2.5MG/ 3ML NEB SCH ×2 (09:05→21:00)
[2023-02-10] MEDS: PULMICORT NEB TX 0.5 MG NEB SCH ×2 (09:05→21:00)
--- NOTE | 2023-02-10 09:19 | EKG ---
Test Reason : TIA, mild CHF, Blood Pressure : */* mmHG Vent. Rate : 182 BPM Atrial Rate : * BPM P-R Int : * ms QRS Dur : 148 ms QT Int : 212 ms P-R-T Axes : * -33 208 degrees QTc Int : 368 ms Atrial paced rhythm with some ventricular fusion beats. Left axis deviation Left bundle branch block Abnormal ECG When compared with ECG of 09-FEB-2023 19:21, (Unconfirmed) premature ventricular complexes are no longer present Vent. rate has increased BY 20 BPM Confirmed by Sujit Patino ([id number]) on 02/10/2023 5:49:54 PM Referred By: Confirmed By: Sujit Patino
[2023-02-10] MEDS: NORVASC TAB 10 MG PO SCH (09:25)
[2023-02-10] MEDS: ALDACTONE TAB 25 MG PO SCH (09:25)
[2023-02-10] MEDS: ECOTRIN TAB 325 MG PO SCH (09:25)
[2023-02-10] MEDS: TRICOR TAB 145 MG PO SCH (09:25)
[2023-02-10] MEDS: LASIX IVP SCH (09:25)
[2023-02-10] MEDS: PLAVIX PO SCH (09:25)
[2023-02-10] MEDS: COREG TAB 12.5 MG PO SCH ×2 (09:25→21:03)
[2023-02-10] MEDS: SINGULAIR TAB 10 MG PO SCH (09:25)
[2023-02-10] MEDS: NICOTINE PATCH TD SCH (09:25)
[2023-02-10] MEDS: LOVENOX INJ 40 MG SYR SC SCH (09:26)
[2023-02-10] MEDS: VASOTEC TAB 10 MG PO SCH (09:26)
--- NOTE | 2023-02-10 12:02 | RAD ---
HISTORYSOBSTUDYPortable AP chestCOMPARISONJuly 2022FINDINGSStable cardiac prominence with pacemaker and sternal wires. The lungs and pleural spaces are unremarkable. There is no evidence for pneumonia or CHF.IMPRESSIONNo change; no acute chest findings.Electronically signed by: SHELIA SMITH (Feb 10, 2023 12:00:37)
[2023-02-10] MEDS: CRESTOR TAB 10 MG PO SCH (21:03)
[2023-02-10] MEDS: FLOMAX PO SCH (21:04)
--- NOTE | 2023-02-10 22:33 | PCM.PROG ---
Progress Note - Progress Note for Day of Date of Exam: 02/10/23 - Subjective Subjective: IS CURRENTLY OBSERVATION STATUS FOR TREATMENT OF ACUTE CVA, CONGESTIVE HEART FAILURE, LEFT SIDED WEAKNESS, LEFT SIDED PARASTHESIA, AND UNSTEADY GAIT. HE HAS A PMH OF HTN, CHF, PACEMAKER, HYPERLIPDEMIA, CAD, BPH, AND SEIZURE DISORDER. TODAY, HE IS ALERT AND ORIENTED, LYING IN BED ON MORNING ROUNDS. HE CONTINUES TO COMPLAIN OF WEAKNESS AND TINGLING OF THE LEFT UPPER AND LOWER EXTREMITY. NURSES REPORT THAT PATIENT HAS BEEN AMBULATING IN THE ROOM WITH THE USE OF A WALKER. THEY REPORT THAT HE HAS IMPAIRED COORDINATION. HE DENIES SHORTNESS OF BREATH THIS MORNING. UPON EXAMINATION, PATIENT IS ABLE TO ANSWER QUESTIONS AND FOLLOW INSTRUCTIONS WITHOUT DIFFICULTY. HEART IS REGULAR IN RATE AND RHYTHM. BILATERAL LUNGS ARE NOTED WITH DIMINISHED LUNG SOUNDS THROUGHOUT. ABDOMEN IS ROUND, SOFT, AND NON-TENDER WITH NORMAL BOWEL SOUNDS NOTED IN ALL QUADRANTS. GOOD RANGE OF MOTION NOTED TO UPPER AND LOWER EXTREMITIES WITH NO EDEMA NOTED. HE HAS 5/5 POWER TO RIGHT UPPER AND LOWER EXTREMITIES. 3/5 POWER NOTED TO LEFT UPPER AND LOWER EXTREMITY. HIS VITALS THIS MORNING ARE: 97.6-64-20-91%-120/74. LABS WERE OBTAINED. WBC 5.4, RBC 4.26, HGB 13.1, HCT 38.5, PLT COUNT 121, SODIUM 139, POTASSIUM 3.7, CHLORIDE 103, BUN 26, CREATININE 1.48, GLUCOSE 102. A CHEST XRAY WAS REPEATED THIS MORNING AND REVEALED: NO ACUTE CARDIOPULMONARY FINDINGS. A BRAIN CT WAS OBTAINED AND REVEALED: Acute infarct in volving the posterior limb of the right internal capsule. No acute hemorrhage. A CAROTID ARTERY ULTRASOUND WAS OBTAINED AND REVEALED: No change; no acute chest findings. AN ECHO WAS OBTAINED AND REVEALED: AN EJECTION FRACTION OF 44%. HE IS CURRENTLY RECEIVING LASIX 20MG IV DAILY, ECOTRIN 325MG DAILY, ROSUVASTATIN 10MG HS, PLAVIX 75MG DAILY, ALBUTEROL NEBS BID, PULMICORT NEBS BID, NICOTINE PATCH 21 MG DAILY, AND HIS HOME MEDICATIONS WERE RESUMED. HOME MEDS INCLUDE: NORVASC, COREG, CATAPRES, VASOTEC, TRICOR, SINGULAIR, NITROSTAT PRN, ALDACTONE, FLOMAX, ZANAFLEX, PERCOCET, DIVALPROEX. WE WILL CONTINUE WITH CURRENT PLAN OF CARE TODAY. PHYSICAL THERAPY WILL CONTINUE TO WORK WITH HIM. OTHERWISE, WE WILL FOLLOW-UP WITH AM LABS AND CHEST XRAY AND CONTINUE TO MONITOR. TIME SPENT ON CLINICAL ASSESSMENT, REVIEWING LABS AND IMAGING, DECISION MAKING, AND DOCUMENTATION GREATER THAN 45 MINUTES. - Past Medical Family Social History Past Med/Fam/Surg Hx: No changes since H&P Allergies: Allergies codeine Allergy (Unknown, Verified 02/09/23 01:46) Reason: Drug allergy levofloxacin [Levaquin] Allergy (Unknown, Verified 02/09/23 01:46) Reason: Drug allergy morphine Allergy (Unknown, Verified 02/09/23 01:46) Reason: Drug allergy - Review of Systems ROS: No change since H&P - Vital Signs and I&O's Vital Signs: Vital Signs Temperature 97.6 F Temperature 97.7 F Pulse Rate [Right] 73 Pulse Rate [Right] 76 Respiratory Rate 18 Respiratory Rate 18 Blood Pressure [Left Arm] 110/68 Blood Pressure [Left Arm] 116/75 O2 Sat by Pulse Oximetry 97 O2 Sat by Pulse Oximetry 96 Intake and Output: Intake & Output 02/08/23 02/09/23 02/10/23 02/11/23 11:59 11:59 11:59 11:59 Intake Total 1180 / 1180 660 / 660 830 / 830 360 / 360 Output Total 1150 / 1150 1000 / 1000 700 / 700 600 / 600 Balance 30 / 30 -340 / -340 130 / 130 -240 / -240 - Physical Exam Oriented: Normal Eyes: Normal Ear: Normal Nose: Normal Throat: Normal Respiratory: Generalized, Diminished Cardiovascular: Normal : Normal Auscultation: Bowel Sounds: Normal Tenderness: Normal Skin: Normal Musculoskeletal: Left, Arm, Leg, Sensory Deficit Psychiatric: Normal Mood Description: Calm, Appropriate Affect: Normal Speech Pattern: Clear, Appropriate - Laboratory and Diagnostics Result Diagrams: 02/10/23 05:16 02/10/23 05:16 Labs: Laboratory WBC 5.4 X10^3/uL (3.6-10.0) 02/10/23 05:16 RBC 4.26 X10^6/uL (4.7-6.0) L 02/10/23 05:16 Hgb 13.1 g/dL (13.5-18.0) L 02/10/23 05:16 Hct 38.5 % (42.0-54.0) L 02/10/23 05:16 MCV 90.3 fL (80.0-100.0) 02/10/23 05:16 MCH 30.8 pg (27.0-34.0) 02/10/23 05:16 MCHC 34.1 g/dL (33.0-35.0) 02/10/23 05:16 RDW 13.8 % (11.6-16.5) 02/10/23 05:16 Plt Count 121 X10^3/uL (150.0-450.0) L 02/10/23 05:16 MPV 9.2 fL (7.4-11.0) 02/10/23 05:16 Neut % (Auto) 53.8 % (42.0-75.0) 02/10/23 05:16 Lymph % (Auto) 35.4 % (21.0-51.0) 02/10/23 05:16 [place] % (Auto) 9.4 % (0.0-13.0) 02/10/23 05:16 Eos % (Auto) 1.1 % (0.9-2.9) 02/10/23 05:16 Baso % (Auto) 0.3 % (0.2-1.0) 02/10/23 05:16 Neut # (Auto) 2.9 x10^3/uL (2.2-4.8) 02/10/23 05:16 Lymph # (Auto) 1.9 X10^3/uL (1.3-2.9) 02/10/23 05:16 [place] # (Auto) 0.5 x10^3/uL (0.3-0.8) 02/10/23 05:16 Eos # (Auto) 0.1 x10^3/uL (0.0-0.2) 02/10/23 05:16 Baso # (Auto) 0.0 X10^3/uL (0.0-0.1) 02/10/23 05:16 Absolute Nucleated RBC 0.0 /100WBC 02/10/23 05:16 PT 13.2 SECONDS (11.8-14.3) 02/06/23 11:56 INR Target Range - 02/06/23 11:56 INR 1.02 (0.8-1.3) 02/06/23 11:56 APTT 28.3 SECONDS (22.9-36.5) 02/06/23 11:56 PTT Comment - 02/06/23 11:56 Sodium 139 mmol/L (136-145) 02/10/23 05:16 Sodium Cancelled 02/10/23 05:16 Corrected Sodium Cancelled 02/10/23 05:16 Corrected Sodium TNP 02/10/23 05:16 Potassium 3.7 mmol/L (3.5-5.1) 02/10/23 05:16 Potassium Cancelled 02/10/23 05:16 Chloride 103 mmol/L (98-107) 02/10/23 05:16 Chloride Cancelled 02/10/23 05:16 Carbon Dioxide 23.5 mmol/L (21-32) 02/10/23 05:16 Carbon Dioxide Cancelled 02/10/23 05:16 BUN 26 mg/dL (7-18) H 02/10/23 05:16 BUN Cancelled 02/10/23 05:16 Creatinine 1.48 mg/dL (0.70-1.30) H 02/10/23 05:16 Creatinine Cancelled 02/10/23 05:16 Est GFR (MDRD) Af Amer > 60 (>60) 02/10/23 05:16 Est GFR (MDRD) Af Amer Cancelled 02/10/23 05:16 Est GFR (MDRD) Non-Af 50 (>60) L 02/10/23 05:16 Est GFR (MDRD) Non-Af Cancelled 02/10/23 05:16 Glucose 102 mg/dL (65-99) H 02/10/23 05:16 Glucose Cancelled 02/10/23 05:16 Calcium 8.5 mg/dL (8.5-10.1) 02/10/23 05:16 Calcium Cancelled 02/10/23 05:16 Corrected Calcium Cancelled 02/10/23 05:16 Magnesium 2.1 mg/dL (2.0-2.9) 02/07/23 04:59 Total Bilirubin Cancelled 02/10/23 05:16 AST Cancelled 02/10/23 05:16 ALT Cancelled 02/10/23 05:16 Alkaline Phosphatase Cancelled 02/10/23 05:16 Creatine Kinase 82 Units/L (39-308) 02/06/23 11:56 Troponin I High Sens 46.9 ng/L (4.0-60.0) 02/06/23 11:56 B-Natriuretic Peptide 177 pg/mL (0-79) H 02/10/23 05:16 Total Protein Cancelled 02/10/23 05:16 Albumin Cancelled 02/10/23 05:16 Globulin Cancelled 02/10/23 05:16 Albumin/Globulin Ratio Cancelled 02/10/23 05:16 Specimen Type Clean catch urine 02/07/23 06:44 Urine Color Straw (YELLOW) 02/07/23 06:44 Urine Appearance Clear (CLEAR) 02/07/23 06:44 Urine pH 6.5 (5.0 - 8.0) 02/07/23 06:44 Ur Specific [place] 1.015 (1.000-1.030) 02/07/23 06:44 Urine Protein Negative (NEGATIVE) 02/07/23 06:44 Urine Glucose (UA) Negative (NEGATIVE) 02/07/23 06:44 Urine Ketones Negative (NEGATIVE) 02/07/23 06:44 Urine Blood Negative (NEGATIVE) 02/07/23 06:44 Urine Nitrite Negative (NEGATIVE) 02/07/23 06:44 Urine Bilirubin Negative (NEGATIVE) 02/07/23 06:44 Urine Urobilinogen Normal (NORMAL) 02/07/23 06:44 Ur Leukocyte Esterase Negative (NEGATIVE) 02/07/23 06:44 - Plan (1) Acute CVA (cerebrovascular accident) Status: Acute Plan: LASIX 20MG IV DAILY, NICOTINE PATCH 21MG DAILY, PLAVIX 75MG DAILY, ECOTRIN 325MG DAILY, ROSUVASTATIN 10MG HS, PT/OT, RESUME HOME MEDS (2) Mild congestive heart failure Status: Acute Plan: LASIX 20MG IV DAILY, RESUME COREG, ALDACTONE, ALBUTEROL NEBS BID, PULMICORT NEBS BID (3) Paresthesia of left arm and leg Status: Acute (4) Left-sided weakness Status: Acute (5) Unsteady gait Status: Acute Plan: PT/OT (6) HTN (hypertension) Status: Chronic Qualifiers: Hypertension type: primary hypertension Qualified Code(s): I10 - Essential (primary) hypertension Plan: RESUME NORVASC, VASOTEC (7) Hyperlipidemia Status: Chronic Qualifiers: Hyperlipidemia type: mixed hyperlipidemia Qualified Code(s): E78.2 - Mixed hyperlipidemia Plan: CONTINUE TRICOR, ROSUVASTATIN (8) Coronary artery disease Status: Chronic Qualifiers: Coronary Disease-Associated Artery/Lesion type: bypass graft [place] vs. transplanted heart: [place] heart Associated angina: without angina Qualified Code(s): I25.810 - Atherosclerosis of coronary artery bypass graft(s) without angina pectoris Plan: CONTINUE PLAVIX (9) BPH (benign prostatic hyperplasia) Status: Chronic Qualifiers: Lower urinary tract symptom presence: symptoms absent Qualified Code(s): N40.0 - Benign prostatic hyperplasia without lower urinary tract symptoms Plan: CONTINUE TAMSULOSIN (10) Seizure disorder Status: Chronic Plan: CONTINUE DIVALPROEX
[2023-02-11] MEDS: VALIUM PO PRN (02:36)
[2023-02-11] MEDS: PATIENT'S HOME MEDICATION PO PRN ×2 (04:02→22:00)
[2023-02-11] MEDS: CATAPRES TAB 0.1 MG PO SCH (05:04)
[2023-02-11 06:18] LABS: BLOOD UREA NITROGEN 30 mg/dL (7-18); CALCIUM 8.6 mg/dL (8.5-10.1); CARBON DIOXIDE 23.2 mmol/L (21-32); CHLORIDE 104 mmol/L (98-107); COR NA(FOR HYPERGLY) 139 mmol/L (136-145); CREATININE 1.68 mg/dL (0.70-1.30); GLUCOSE 135 mg/dL (65-99); POTASSIUM 3.8 mmol/L (3.5-5.1); SODIUM 138 mmol/L (136-145); eGFR NON BLACK RACES 43 (>60)
[2023-02-11 06:20] LABS: BASOPHILS % (AUTO) 0.5 % (0.2-1.0); EOSINOPHILS # (AUTO) 0.1 x10^3/uL (0.0-0.2); EOSINOPHILS % (AUTO) 1.1 % (0.9-2.9); HEMATOCRIT 35.8 % (42.0-54.0); HEMOGLOBIN 12.3 g/dL (13.5-18.0); LYMPHOCYTES # (AUTO) 2.1 X10^3/uL (1.3-2.9); LYMPHOCYTES % (AUTO) 34.1 % (21.0-51.0); MEAN CORPUSCULAR HEMOGLOBIN 31.1 pg (27.0-34.0); MEAN CORPUSCULAR HGB CONC 34.3 g/dL (33.0-35.0); MEAN CORPUSCULAR VOLUME 90.7 fL (80.0-100.0); MEAN PLATELET VOLUME 9.7 fL (7.4-11.0); MONOCYTES # (AUTO) 0.7 x10^3/uL (0.3-0.8); MONOCYTES % (AUTO) 11.5 % (0.0-13.0); NEUTROPHILS # (AUTO) 3.2 x10^3/uL (2.2-4.8); NEUTROPHILS % (AUTO) 52.8 % (42.0-75.0); PLATELET COUNT 115 X10^3/uL (150.0-450.0); RED BLOOD COUNT 3.95 X10^6/uL (4.7-6.0); RED CELL DISTRIBUTION WIDTH 13.6 % (11.6-16.5)
[2023-02-11] MEDS: PROVENTIL NEB TX 0.083% 2.5MG/ 3ML NEB SCH ×2 (08:47→20:50)
[2023-02-11] MEDS: PULMICORT NEB TX 0.5 MG NEB SCH ×2 (08:47→20:50)
[2023-02-11] MEDS: LASIX IVP SCH (09:07)
[2023-02-11] MEDS: TRICOR TAB 145 MG PO SCH (09:07)
[2023-02-11] MEDS: SINGULAIR TAB 10 MG PO SCH (09:08)
[2023-02-11] MEDS: ALDACTONE TAB 25 MG PO SCH (09:08)
[2023-02-11] MEDS: PLAVIX PO SCH (09:08)
[2023-02-11] MEDS: NORVASC TAB 10 MG PO SCH (09:08)
[2023-02-11] MEDS: COREG TAB 12.5 MG PO SCH ×2 (09:08→21:19)
[2023-02-11] MEDS: LOVENOX INJ 40 MG SYR SC SCH (09:08)
[2023-02-11] MEDS: ECOTRIN TAB 325 MG PO SCH (09:08)
[2023-02-11] MEDS: VASOTEC TAB 10 MG PO SCH (09:09)
[2023-02-11] MEDS: NICOTINE PATCH TD SCH (09:09)
--- NOTE | 2023-02-11 12:28 | RAD ---
HISTORYShortness breathSTUDYCHEST, 1 [id number] trachea is midline. The cardiac silhouette is enlarged with a tortuous thoracic aorta. Prior changes of median sternotomy are noted. A pacing device overlying the right hemithorax is observed. The lungs are clear without focal infiltrate or effusion. The bony thorax is unremarkable.IMPRESSIONNo acute cardiopulmonary disease.Electronically signed by: GEE STOVALL (Feb 11, 2023 12:22:37)
--- NOTE | 2023-02-11 20:03 | PCM.PROG ---
Progress Note - Progress Note for Day of Date of Exam: 02/11/23 - Subjective Subjective: IS CURRENTLY OBSERVATION STATUS FOR TREATMENT OF ACUTE CVA, CONGESTIVE HEART FAILURE, LEFT SIDED WEAKNESS, LEFT SIDED PARASTHESIA, AND UNSTEADY GAIT. HE HAS A PMH OF HTN, CHF, PACEMAKER, HYPERLIPDEMIA, CAD, BPH, AND SEIZURE DISORDER. TODAY, HE IS ALERT AND ORIENTED, SITTING UP IN BED ON MORNING ROUNDS. HE CONTINUES TO COMPLAIN OF WEAKNESS AND TINGLING OF THE LEFT UPPER AND LOWER EXTREMITY. NURSES REPORT THAT PATIENT HAS BEEN AMBULATING IN THE ROOM WITH THE USE OF A WALKER. THEY REPORT THAT HE HAS IMPAIRED COORDINATION. HE DENIES SHORTNESS OF BREATH THIS MORNING. UPON EXAMINATION, PATIENT IS ABLE TO ANSWER QUESTIONS AND FOLLOW INSTRUCTIONS WITHOUT DIFFICULTY. HEART IS REGULAR IN RATE AND RHYTHM. BILATERAL LUNGS ARE NOTED WITH DIMINISHED LUNG SOUNDS THROUGHOUT. ABDOMEN IS ROUND, SOFT, AND NON-TENDER WITH NORMAL BOWEL SOUNDS NOTED IN ALL QUADRANTS. GOOD RANGE OF MOTION NOTED TO UPPER AND LOWER EXTREMITIES WITH NO EDEMA NOTED. HE HAS 5/5 POWER TO RIGHT UPPER AND LOWER EXTREMITIES. 3/5 POWER NOTED TO LEFT UPPER AND LOWER EXTREMITY. HIS VITALS THIS MORNING ARE: 97.1-64-18-93%-121/61. LABS WERE OBTAINED. WBC 6.0, RBC 3.95, HGB 12.3, HCT 35.8, PLT COUNT 115, SODIUM 138, POTASSIUM 3.8, CHLORIDE 104, CARBON DIOXIDE 23.2, BUN 30, CREATININE 1.68, GLUCOSE 135, CALCIUM 8.6, BNP 207. A CHEST XRAY WAS REPEATED THIS MORNING AND REVEALED: NO ACUTE CARDIOPULMONARY DISEASE. HE IS CURRENTLY RECEIVING LASIX 20MG IV DAILY, ECOTRIN 325MG DAILY, ROSUVASTATIN 10MG HS, PLAVIX 75MG DAILY, ALBUTEROL NEBS BID, PULMICORT NEBS BID, NICOTINE PATCH 21MG DAILY, AND HIS HOME MEDICATIONS WERE RESUMED. HOME MEDS INCLUDE: NORVASC, COREG, CATAPRES, VASOTEC, TRICOR, SINGULAIR, NITROSTAT PRN, ALDACTONE, FLOMAX, ZANAFLEX, PERCOCET, DIVALPROEX. WE WILL CONTINUE WITH CURRENT PLAN OF CARE TODAY. PATIENT REQUEST IN FACILITY REHAB. HE REPORTS THAT HE IS AFRAID THAT HE WILL NOT BE ABLE TO PERFORM ADLs DUE TO LIVING AT HOME ALONE. WE WILL ATTEMPT PLACEMENT. PHYSICAL THERAPY WILL CONTINUE TO WORK WITH HIM TODAY. OTHERWISE, WE WILL FOLLOW-UP WITH AM LABS AND CHEST XRAY AND CONTINUE TO MONITOR. TIME SPENT ON CLINICAL ASSESSMENT, REVIEWING LABS AND IMAGING, DECISION MAKING, AND DOCUMENTATION GREATER THAN 45 MINUTES. - Past Medical Family Social History Past Med/Fam/Surg Hx: No changes since H&P Allergies: Allergies codeine Allergy (Unknown, Verified 02/09/23 01:46) Reason: Drug allergy levofloxacin [Levaquin] Allergy (Unknown, Verified 02/09/23 01:46) Reason: Drug allergy morphine Allergy (Unknown, Verified 02/09/23 01:46) Reason: Drug allergy - Review of Systems ROS: No change since H&P - Vital Signs and I&O's Vital Signs: Vital Signs Temperature 98.3 F Temperature 97.9 F Pulse Rate [Right] 70 Pulse Rate [Right] 70 Respiratory Rate 18 Respiratory Rate 20 Blood Pressure [Left Arm] 126/65 Blood Pressure [Left Arm] 115/73 O2 Sat by Pulse Oximetry 96 O2 Sat by Pulse Oximetry 93 Intake and Output: Intake & Output 02/09/23 02/10/23 02/11/23 02/12/23 11:59 11:59 11:59 11:59 Intake Total 660 / 660 830 / 830 1211 / 1211 490 / 490 Output Total 1000 / 1000 700 / 700 1200 / 1200 600 / 600 Balance -340 / -340 130 / 130 11 -110 / -110 - Physical Exam Oriented: Normal Eyes: Normal Ear: Normal Nose: Normal Throat: Normal Respiratory: Generalized, Diminished Cardiovascular: Normal : Normal Auscultation: Bowel Sounds: Normal Palpation: Normal Tenderness: Normal Skin: Normal Musculoskeletal: Left, Arm, Leg, Sensory Deficit Psychiatric: Normal Mood Description: Calm, Appropriate Affect: Normal Speech Pattern: Clear, Appropriate - Laboratory and Diagnostics Result Diagrams: 02/11/23 05:22 02/11/23 05:22 Labs: Laboratory WBC 6.0 X10^3/uL (3.6-10.0) 02/11/23 05:22 RBC 3.95 X10^6/uL (4.7-6.0) L 02/11/23 05:22 Hgb 12.3 g/dL (13.5-18.0) L 02/11/23 05:22 Hct 35.8 % (42.0-54.0) L 02/11/23 05:22 MCV 90.7 fL (80.0-100.0) 02/11/23 05:22 MCH 31.1 pg (27.0-34.0) 02/11/23 05:22 MCHC 34.3 g/dL (33.0-35.0) 02/11/23 05:22 RDW 13.6 % (11.6-16.5) 02/11/23 05:22 Plt Count 115 X10^3/uL (150.0-450.0) L 02/11/23 05:22 MPV 9.7 fL (7.4-11.0) 02/11/23 05:22 Neut % (Auto) 52.8 % (42.0-75.0) 02/11/23 05:22 Lymph % (Auto) 34.1 % (21.0-51.0) 02/11/23 05:22 [place] % (Auto) 11.5 % (0.0-13.0) 02/11/23 05:22 Eos % (Auto) 1.1 % (0.9-2.9) 02/11/23 05:22 Baso % (Auto) 0.5 % (0.2-1.0) 02/11/23 05:22 Neut # (Auto) 3.2 x10^3/uL (2.2-4.8) 02/11/23 05:22 Lymph # (Auto) 2.1 X10^3/uL (1.3-2.9) 02/11/23 05:22 [place] # (Auto) 0.7 x10^3/uL (0.3-0.8) 02/11/23 05:22 Eos # (Auto) 0.1 x10^3/uL (0.0-0.2) 02/11/23 05:22 Baso # (Auto) 0.0 X10^3/uL (0.0-0.1) 02/11/23 05:22 Absolute Nucleated RBC 0.0 /100WBC 02/11/23 05:22 PT 13.2 SECONDS (11.8-14.3) 02/06/23 11:56 INR Target Range - 02/06/23 11:56 INR 1.02 (0.8-1.3) 02/06/23 11:56 APTT 28.3 SECONDS (22.9-36.5) 02/06/23 11:56 PTT Comment - 02/06/23 11:56 Sodium 138 mmol/L (136-145) 02/11/23 05:22 Corrected Sodium 139 mmol/L (136-145) 02/11/23 05:22 Potassium 3.8 mmol/L (3.5-5.1) 02/11/23 05:22 Chloride 104 mmol/L (98-107) 02/11/23 05:22 Carbon Dioxide 23.2 mmol/L (21-32) 02/11/23 05:22 BUN 30 mg/dL (7-18) H 02/11/23 05:22 Creatinine 1.68 mg/dL (0.70-1.30) H 02/11/23 05:22 Est GFR (MDRD) Af Amer 52 (>60) L 02/11/23 05:22 Est GFR (MDRD) Non-Af 43 (>60) L 02/11/23 05:22 Glucose 135 mg/dL (65-99) H 02/11/23 05:22 Calcium 8.6 mg/dL (8.5-10.1) 02/11/23 05:22 Corrected Calcium Cancelled 02/10/23 05:16 Magnesium 2.1 mg/dL (2.0-2.9) 02/07/23 04:59 Total Bilirubin Cancelled 02/10/23 05:16 AST Cancelled 02/10/23 05:16 ALT Cancelled 02/10/23 05:16 Alkaline Phosphatase Cancelled 02/10/23 05:16 Creatine Kinase 82 Units/L (39-308) 02/06/23 11:56 Troponin I High Sens 46.9 ng/L (4.0-60.0) 02/06/23 11:56 B-Natriuretic Peptide 207 pg/mL (0-79) H 02/11/23 05:22 Total Protein Cancelled 02/10/23 05:16 Albumin Cancelled 02/10/23 05:16 Globulin Cancelled 02/10/23 05:16 Albumin/Globulin Ratio Cancelled 02/10/23 05:16 Specimen Type Clean catch urine 02/07/23 06:44 Urine Color Straw (YELLOW) 02/07/23 06:44 Urine Appearance Clear (CLEAR) 02/07/23 06:44 Urine pH 6.5 (5.0 - 8.0) 02/07/23 06:44 Ur Specific [place] 1.015 (1.000-1.030) 02/07/23 06:44 Urine Protein Negative (NEGATIVE) 02/07/23 06:44 Urine Glucose (UA) Negative (NEGATIVE) 02/07/23 06:44 Urine Ketones Negative (NEGATIVE) 02/07/23 06:44 Urine Blood Negative (NEGATIVE) 02/07/23 06:44 Urine Nitrite Negative (NEGATIVE) 02/07/23 06:44 Urine Bilirubin Negative (NEGATIVE) 02/07/23 06:44 Urine Urobilinogen Normal (NORMAL) 02/07/23 06:44 Ur Leukocyte Esterase Negative (NEGATIVE) 02/07/23 06:44 - Plan (1) Acute CVA (cerebrovascular accident) Status: Acute Plan: LASIX 20MG IV DAILY, NICOTINE PATCH 21MG DAILY, PLAVIX 75MG DAILY, ECOTRIN 325MG DAILY, ROSUVASTATIN 10MG HS, PT/OT, RESUME HOME MEDS (2) Mild congestive heart failure Status: Acute Plan: LASIX 20MG IV DAILY, RESUME COREG, ALDACTONE, ALBUTEROL NEBS BID, PULMICORT NEBS BID (3) Paresthesia of left arm and leg Status: Acute (4) Left-sided weakness Status: Acute (5) Unsteady gait Status: Acute Plan: PT/OT (6) HTN (hypertension) Status: Chronic Qualifiers: Hypertension type: primary hypertension Qualified Code(s): I10 - Essential (primary) hypertension Plan: RESUME NORVASC, VASOTEC (7) Hyperlipidemia Status: Chronic Qualifiers: Hyperlipidemia type: mixed hyperlipidemia Qualified Code(s): E78.2 - Mixed hyperlipidemia Plan: CONTINUE TRICOR, ROSUVASTATIN (8) Coronary artery disease Status: Chronic Qualifiers: Coronary Disease-Associated Artery/Lesion type: bypass graft [place] vs. transplanted heart: [place] heart Associated angina: without angina Qualified Code(s): I25.810 - Atherosclerosis of coronary artery bypass graft(s) without angina pectoris Plan: CONTINUE PLAVIX (9) BPH (benign prostatic hyperplasia) Status: Chronic Qualifiers: Lower urinary tract symptom presence: symptoms absent Qualified Code(s): N40.0 - Benign prostatic hyperplasia without lower urinary tract symptoms Plan: CONTINUE TAMSULOSIN (10) Seizure disorder Status: Chronic Plan: CONTINUE DIVALPROEX
[2023-02-11] MEDS: CRESTOR TAB 10 MG PO SCH (21:19)
[2023-02-11] MEDS: FLOMAX PO SCH (21:19)
[2023-02-11 22:27] LABS: ALANINE AMINOTRANSFERASE 18 Units/L (12-78); ALBUMIN 3.7 g/dL (3.4-5.0); ALKALINE PHOSPHATASE 58 Units/L (46-116); ASPARTATE AMINO TRANSFERASE 16 Units/L (15-37); TOTAL PROTEIN 6.2 g/dL (6.4-8.2)
[2023-02-12] MEDS: VALIUM PO PRN ×2 (00:30→13:40)
[2023-02-12] MEDS: PATIENT'S HOME MEDICATION PO PRN ×4 (04:03→22:17)
[2023-02-12 05:58] LABS: BASOPHILS % (AUTO) 0.9 % (0.2-1.0); EOSINOPHILS # (AUTO) 0.1 x10^3/uL (0.0-0.2); EOSINOPHILS % (AUTO) 1.1 % (0.9-2.9); HEMATOCRIT 36.2 % (42.0-54.0); HEMOGLOBIN 12.4 g/dL (13.5-18.0); LYMPHOCYTES % (AUTO) 37.7 % (21.0-51.0); MEAN CORPUSCULAR HEMOGLOBIN 30.9 pg (27.0-34.0); MEAN CORPUSCULAR HGB CONC 34.3 g/dL (33.0-35.0); MEAN PLATELET VOLUME 9.3 fL (7.4-11.0); MONOCYTES # (AUTO) 0.6 x10^3/uL (0.3-0.8); MONOCYTES % (AUTO) 11.6 % (0.0-13.0); NEUTROPHILS # (AUTO) 2.6 x10^3/uL (2.2-4.8); NEUTROPHILS % (AUTO) 48.7 % (42.0-75.0); PLATELET COUNT 122 X10^3/uL (150.0-450.0); RED BLOOD COUNT 4.02 X10^6/uL (4.7-6.0); RED CELL DISTRIBUTION WIDTH 13.5 % (11.6-16.5); WHITE BLOOD COUNT 5.3 X10^3/uL (3.6-10.0)
[2023-02-12 06:16] LABS: ALANINE AMINOTRANSFERASE 15 Units/L (12-78); ALBUMIN 3.7 g/dL (3.4-5.0); ALKALINE PHOSPHATASE 58 Units/L (46-116); ASPARTATE AMINO TRANSFERASE 13 Units/L (15-37); BLOOD UREA NITROGEN 31 mg/dL (7-18); CALCIUM 8.2 mg/dL (8.5-10.1); CARBON DIOXIDE 25.3 mmol/L (21-32); CHLORIDE 105 mmol/L (98-107); GLUCOSE 106 mg/dL (65-99); POTASSIUM 3.8 mmol/L (3.5-5.1); SODIUM 139 mmol/L (136-145); TOTAL PROTEIN 6.3 g/dL (6.4-8.2); eGFR NON BLACK RACES 46 (>60)
[2023-02-12] MEDS ORDERED: K-DUR TAB 20 MEQ PO SCH (07:00)
[2023-02-12] MEDS ORDERED: CONSULT PHARMACY - POTASSIUM & MAGNESIUM XX SCH (07:00)
--- NOTE | 2023-02-12 07:18 | RAD ---
HISTORYCongestive heart failure, shortness of breathSTUDYChest AP [id number] is a pacemaker present in the right axilla. Patient is status post median sternotomy and CABG. Heart is enlarged. No congestive heart failure is noted. No acute alveolar infiltrates or pleural effusions are identified. Bony thorax is unremarkable.IMPRESSIONCardiomegaly without congestive heart failureNo definite acute infiltratesElectronically signed by: SHARIF COTTRELL (Feb 12, 2023 07:17:06)
[2023-02-12] MEDS: PULMICORT NEB TX 0.5 MG NEB SCH ×2 (09:30→20:36)
[2023-02-12] MEDS: PROVENTIL NEB TX 0.083% 2.5MG/ 3ML NEB SCH ×2 (09:30→20:36)
[2023-02-12] MEDS: ECOTRIN TAB 325 MG PO SCH (09:50)
[2023-02-12] MEDS: ALDACTONE TAB 25 MG PO SCH (09:50)
[2023-02-12] MEDS: COREG TAB 12.5 MG PO SCH ×2 (09:50→21:16)
[2023-02-12] MEDS: LOVENOX INJ 40 MG SYR SC SCH (09:51)
[2023-02-12] MEDS: PLAVIX PO SCH (09:51)
[2023-02-12] MEDS: NORVASC TAB 10 MG PO SCH (09:51)
[2023-02-12] MEDS: NICOTINE PATCH TD SCH (09:51)
[2023-02-12] MEDS: LASIX IVP SCH (09:51)
[2023-02-12] MEDS: SINGULAIR TAB 10 MG PO SCH (09:52)
[2023-02-12] MEDS: VASOTEC TAB 10 MG PO SCH (09:52)
[2023-02-12] MEDS: TRICOR TAB 145 MG PO SCH (09:52)
--- NOTE | 2023-02-12 16:22 | PCM.PROG ---
Progress Note Progress Note for Day of Date of Exam: 02/12/23 Subjective Subjective: IS CURRENTLY OBSERVATION STATUS FOR TREATMENT OF ACUTE CVA, CONGESTIVE HEART FAILURE, LEFT SIDED WEAKNESS, LEFT SIDED PARASTHESIA, AND UNSTEADY GAIT. HE HAS A PMH OF HTN, CHF, PACEMAKER, HYPERLIPDEMIA, CAD, BPH, AND SEIZURE DISORDER. TODAY, HE IS ALERT AND ORIENTED, SITTING UP IN BED ON MORNING ROUNDS. HE CONTINUES TO COMPLAIN OF WEAKNESS AND TINGLING OF THE LEFT UPPER AND LOWER EXTREMITY. NURSES REPORT THAT PATIENT HAS BEEN AMBULATING IN THE ROOM WITH THE USE OF A WALKER. THEY REPORT THAT HE HAS IMPAIRED COORDINATION. HE DENIES SHORTNESS OF BREATH THIS MORNING. UPON EXAMINATION, PATIENT IS ABLE TO ANSWER QUESTIONS AND FOLLOW INSTRUCTIONS WITHOUT DIFFICULTY. HEART IS REGULAR IN RATE AND RHYTHM. BILATERAL LUNGS ARE NOTED WITH DIMINISHED LUNG SOUNDS THROUGHOUT. ABDOMEN IS ROUND, SOFT, AND NON-TENDER WITH NORMAL BOWEL SOUNDS NOTED IN ALL QUADRANTS. GOOD RANGE OF MOTION NOTED TO UPPER AND LOWER EXTREMITIES WITH NO EDEMA NOTED. HE HAS 5/5 POWER TO RIGHT UPPER AND LOWER EXTREMITIES. 3/5 POWER NOTED TO LEFT UPPER AND LOWER EXTREMITY. This morning the patient is sitting up in his bed. He is moving his left and right extremities and reports that he can get up and get around the room. He will of someone or walker. Currently we are trying to get him in [facility] and rehab for inpatient physical therapy however at this time we have not heard back from them regarding his admission. We were told he would take a few days to get him restarted and get him admitted there. Currently in the meantime he is improving and has no new complaints this morning. Past Medical Family Social History Past Med/Fam/Surg Hx: No changes since H&P Allergies: Allergies codeine Allergy (Unknown, Verified 02/09/23 01:46) Reason: Drug allergy levofloxacin [Levaquin] Allergy (Unknown, Verified 02/09/23 01:46) Reason: Drug allergy morphine Allergy (Unknown, Verified 02/09/23 01:46) Reason: Drug allergy Review of Systems ROS: No change since H&P Vital Signs and I&O's Vital Signs: Vital Signs Temperature 98.5 F Pulse Rate [Right] 58 Pulse Rate 88 Respiratory Rate 22 Blood Pressure [Left Arm] 125/68 O2 Sat by Pulse Oximetry 95 O2 Sat by Pulse Oximetry 99 Intake and Output: Intake & Output 02/10/23 02/11/23 02/12/23 02/13/23 11:59 11:59 11:59 11:59 Intake Total 830 / 830 1211 / 1211 1170 / 1170 Output Total 700 / 700 1200 / 1200 1250 / 1250 Balance 130 / 130 -80 / -80 Physical Exam Oriented: Normal Eyes: Normal Ear: Normal Nose: Normal Throat: Normal Respiratory: Generalized and Diminished Cardiovascular: Normal : Normal Auscultation: Bowel Sounds: Normal Tenderness: Normal Skin: Normal Musculoskeletal: Left, Arm, Leg and Sensory Deficit Psychiatric: Normal Mood Description: Calm and Appropriate Affect: Normal Speech Pattern: Clear and Appropriate Laboratory and Diagnostics Result Diagrams: 02/12/23 05:43 02/12/23 05:43 Labs: Laboratory WBC 5.3 X10^3/uL (3.6-10.0) 02/12/23 05:43 RBC 4.02 X10^6/uL (4.7-6.0) L 02/12/23 05:43 Hgb 12.4 g/dL (13.5-18.0) L 02/12/23 05:43 Hct 36.2 % (42.0-54.0) L 02/12/23 05:43 MCV 90.0 fL (80.0-100.0) 02/12/23 05:43 MCH 30.9 pg (27.0-34.0) 02/12/23 05:43 MCHC 34.3 g/dL (33.0-35.0) 02/12/23 05:43 RDW 13.5 % (11.6-16.5) 02/12/23 05:43 Plt Count 122 X10^3/uL (150.0-450.0) L 02/12/23 05:43 MPV 9.3 fL (7.4-11.0) 02/12/23 05:43 Neut % (Auto) 48.7 % (42.0-75.0) 02/12/23 05:43 Lymph % (Auto) 37.7 % (21.0-51.0) 02/12/23 05:43 [place] % (Auto) 11.6 % (0.0-13.0) 02/12/23 05:43 Eos % (Auto) 1.1 % (0.9-2.9) 02/12/23 05:43 Baso % (Auto) 0.9 % (0.2-1.0) 02/12/23 05:43 Neut # (Auto) 2.6 x10^3/uL (2.2-4.8) 02/12/23 05:43 Lymph # (Auto) 2.0 X10^3/uL (1.3-2.9) 02/12/23 05:43 [place] # (Auto) 0.6 x10^3/uL (0.3-0.8) 02/12/23 05:43 Eos # (Auto) 0.1 x10^3/uL (0.0-0.2) 02/12/23 05:43 Baso # (Auto) 0.0 X10^3/uL (0.0-0.1) 02/12/23 05:43 Absolute Nucleated RBC 0.1 /100WBC 02/12/23 05:43 PT 13.2 SECONDS (11.8-14.3) 02/06/23 11:56 INR Target Range - 02/06/23 11:56 INR 1.02 (0.8-1.3) 02/06/23 11:56 APTT 28.3 SECONDS (22.9-36.5) 02/06/23 11:56 PTT Comment - 02/06/23 11:56 Sodium 139 mmol/L (136-145) 02/12/23 05:43 Corrected Sodium TNP 02/12/23 05:43 Potassium 3.8 mmol/L (3.5-5.1) 02/12/23 05:43 Chloride 105 mmol/L (98-107) 02/12/23 05:43 Carbon Dioxide 25.3 mmol/L (21-32) 02/12/23 05:43 BUN 31 mg/dL (7-18) H 02/12/23 05:43 Creatinine 1.60 mg/dL (0.70-1.30) H 02/12/23 05:43 Est GFR (MDRD) Af Amer 55 (>60) L 02/12/23 05:43 Est GFR (MDRD) Non-Af 46 (>60) L 02/12/23 05:43 Glucose 106 mg/dL (65-99) H 02/12/23 05:43 Calcium 8.2 mg/dL (8.5-10.1) L 02/12/23 05:43 Corrected Calcium TNP 02/12/23 05:43 Magnesium 2.1 mg/dL (2.0-2.9) 02/07/23 04:59 Total Bilirubin 0.40 mg/dL (0.2-1.0) 02/12/23 05:43 AST 13 Units/L (15-37) L 02/12/23 05:43 ALT 15 Units/L (12-78) 02/12/23 05:43 Alkaline Phosphatase 58 Units/L (46-116) 02/12/23 05:43 Creatine Kinase 82 Units/L (39-308) 02/06/23 11:56 Troponin I High Sens 46.9 ng/L (4.0-60.0) 02/06/23 11:56 B-Natriuretic Peptide 341 pg/mL (0-79) H 02/12/23 05:43 Total Protein 6.3 g/dL (6.4-8.2) L 02/12/23 05:43 Albumin 3.7 g/dL (3.4-5.0) 02/12/23 05:43 Globulin 2.6 g/dL (2.5-4.5) 02/12/23 05:43 Albumin/Globulin Ratio 1.4 Ratio (1.1-2.1) 02/12/23 05:43 Specimen Type Clean catch urine 02/07/23 06:44 Urine Color Straw (YELLOW) 02/07/23 06:44 Urine Appearance Clear (CLEAR) 02/07/23 06:44 Urine pH 6.5 (5.0 - 8.0) 02/07/23 06:44 Ur Specific [place] 1.015 (1.000-1.030) 02/07/23 06:44 Urine Protein Negative (NEGATIVE) 02/07/23 06:44 Urine Glucose (UA) Negative (NEGATIVE) 02/07/23 06:44 Urine Ketones Negative (NEGATIVE) 02/07/23 06:44 Urine Blood Negative (NEGATIVE) 02/07/23 06:44 Urine Nitrite Negative (NEGATIVE) 02/07/23 06:44 Urine Bilirubin Negative (NEGATIVE) 02/07/23 06:44 Urine Urobilinogen Normal (NORMAL) 02/07/23 06:44 Ur Leukocyte Esterase Negative (NEGATIVE) 02/07/23 06:44 Plan (1) Acute CVA (cerebrovascular accident): Status: Acute Plan: LASIX 20MG IV DAILY, NICOTINE PATCH 21MG DAILY, PLAVIX 75MG DAILY, ECOTRIN 325MG DAILY, ROSUVASTATIN 10MG HS, PT/OT, RESUME HOME MEDS (2) Mild congestive heart failure: Status: Acute Plan: LASIX 20MG IV DAILY, RESUME COREG, ALDACTONE, ALBUTEROL NEBS BID, PULMICORT NEBS BID (3) Paresthesia of left arm and leg: Status: Acute Plan: Monitor for improvement past CVA. (4) Left-sided weakness: Status: Acute Plan: Physical therapy (5) Unsteady gait: Status: Acute Plan: PT/OT (6) HTN (hypertension): Status: Chronic Qualifiers: Hypertension type: primary hypertension Qualified Code(s): I10 - [place] tial (primary) hypertension Plan: RESUME NORVASC, VASOTEC (7) Hyperlipidemia: Status: Chronic Qualifiers: Hyperlipidemia type: mixed hyperlipidemia Qualified Code(s): E78.2 - Mixed hyperlipidemia Plan: CONTINUE TRICOR, ROSUVASTATIN (8) Coronary artery disease: Status: Chronic Qualifiers: Coronary Disease-Associated Artery/Lesion type: bypass graft [place] vs. transplanted heart: [place] heart Associated angina: without angina Qualified Code(s): I25.810 - Atherosclerosis of coronary artery bypass graft(s) without angina pectoris Plan: CONTINUE PLAVIX (9) BPH (benign prostatic hyperplasia): Status: Chronic Qualifiers: Lower urinary tract symptom presence: symptoms absent Qualified Code(s): N40.0 - Benign prostatic hyperplasia without lower urinary tract symptoms Plan: CONTINUE TAMSULOSIN (10) Seizure disorder: Status: Chronic Plan: CONTINUE DIVALPROEX
[2023-02-12] MEDS: FLOMAX PO SCH (21:16)
[2023-02-12] MEDS: CRESTOR TAB 10 MG PO SCH (21:16)
[2023-02-13] MEDS: VALIUM PO PRN ×3 (02:00→17:40)
[2023-02-13] MEDS: PATIENT'S HOME MEDICATION PO PRN ×4 (04:20→22:00)
[2023-02-13] MEDS: PULMICORT NEB TX 0.5 MG NEB SCH ×2 (08:30→20:23)
[2023-02-13] MEDS: PROVENTIL NEB TX 0.083% 2.5MG/ 3ML NEB SCH ×2 (08:30→20:23)
[2023-02-13] MEDS: LOVENOX INJ 40 MG SYR SC SCH (09:39)
[2023-02-13] MEDS: COREG TAB 12.5 MG PO SCH ×2 (09:40→21:05)
[2023-02-13] MEDS: LASIX IVP SCH (09:40)
[2023-02-13] MEDS: SINGULAIR TAB 10 MG PO SCH (09:40)
[2023-02-13] MEDS: NICOTINE PATCH TD SCH (09:41)
[2023-02-13] MEDS: PLAVIX PO SCH (09:41)
[2023-02-13] MEDS: VASOTEC TAB 10 MG PO SCH (09:41)
[2023-02-13] MEDS: ECOTRIN TAB 325 MG PO SCH (09:41)
[2023-02-13] MEDS: ALDACTONE TAB 25 MG PO SCH (09:41)
[2023-02-13] MEDS: NORVASC TAB 10 MG PO SCH (09:41)
[2023-02-13] MEDS: TRICOR TAB 145 MG PO SCH (09:41)
--- NOTE | 2023-02-13 13:59 | PCM.PROG ---
Progress Note Progress Note for Day of Date of Exam: 02/13/23 Subjective Subjective: IS CURRENTLY OBSERVATION STATUS FOR TREATMENT OF ACUTE CVA, CONGESTIVE HEART FAILURE, LEFT SIDED WEAKNESS, LEFT SIDED PARASTHESIA, AND UNSTEADY GAIT. HE HAS A PMH OF HTN, CHF, PACEMAKER, HYPERLIPDEMIA, CAD, BPH, AND SEIZURE DISORDER. TODAY, HE IS ALERT AND ORIENTED, SITTING UP IN BED ON MORNING ROUNDS. HE CONTINUES TO COMPLAIN OF WEAKNESS AND TINGLING OF THE LEFT UPPER AND LOWER EXTREMITY. NURSES REPORT THAT PATIENT HAS BEEN AMBULATING IN THE ROOM WITH THE USE OF A WALKER. THEY REPORT THAT HE HAS IMPAIRED COORDINATION. HE DENIES SHORTNESS OF BREATH THIS MORNING. UPON EXAMINATION, PATIENT IS ABLE TO ANSWER QUESTIONS AND FOLLOW INSTRUCTIONS WITHOUT DIFFICULTY. HEART IS REGULAR IN RATE AND RHYTHM. BILATERAL LUNGS ARE NOTED WITH DIMINISHED LUNG SOUNDS THROUGHOUT. ABDOMEN IS ROUND, SOFT, AND NON-TENDER WITH NORMAL BOWEL SOUNDS NOTED IN ALL QUADRANTS. GOOD RANGE OF MOTION NOTED TO UPPER AND LOWER EXTREMITIES WITH NO EDEMA NOTED. HE HAS 5/5 POWER TO RIGHT UPPER AND LOWER EXTREMITIES. 3/5 POWER NOTED TO LEFT UPPER AND LOWER EXTREMITY. This morning the patient is sitting up in his bed. He is moving his left and right extremities and reports that he can get up and get around the room. He reports he can get around easier when somebody is helping him but he is tending to want to fall when he is using the walker. He is having difficulty trying to get his legs to move when he is trying walk. Currently we are trying to get him in [facility] and rehab for inpatient physical therapy however at this time we have not heard back from them regarding his admission. We were told he would take a few days to get him restarted and get him admitted there. Currently in the meantime he is improving and has no new complaints this morning. His strength in his left upper extremity has improved to 4/5. Past Medical Family Social History Past Med/Fam/Surg Hx: No changes since H&P Allergies: Allergies codeine Allergy (Unknown, Verified 02/09/23 01:46) Reason: Drug allergy levofloxacin [Levaquin] Allergy (Unknown, Verified 02/09/23 01:46) Reason: Drug allergy morphine Allergy (Unknown, Verified 02/09/23 01:46) Reason: Drug allergy Review of Systems ROS: No change since H&P Vital Signs and I&O's Vital Signs: Vital Signs Pulse Rate 75 O2 Sat by Pulse Oximetry 98 Intake and Output: Intake & Output 02/11/23 02/12/23 02/13/23 02/14/23 11:59 11:59 11:59 11:59 Intake Total 1211 / 1211 1170 / 1170 1370 / 1370 Output Total 1200 / 1200 1250 / 1250 1100 / 1100 Balance -80 / -80 270 / 270 Physical Exam Oriented: Normal Eyes: Normal Ear: Normal Nose: Normal Throat: Normal Respiratory: Generalized and Diminished Cardiovascular: Normal : Normal Auscultation: Bowel Sounds: Normal Tenderness: Normal Skin: Normal Musculoskeletal: Left, Arm, Leg and Sensory Deficit Psychiatric: Normal Mood Description: Appropriate Affect: Normal Speech Pattern: Clear and Appropriate Laboratory and Diagnostics Result Diagrams: 02/12/23 05:43 02/12/23 05:43 Labs: Laboratory WBC 5.3 X10^3/uL (3.6-10.0) 02/12/23 05:43 RBC 4.02 X10^6/uL (4.7-6.0) L 02/12/23 05:43 Hgb 12.4 g/dL (13.5-18.0) L 02/12/23 05:43 Hct 36.2 % (42.0-54.0) L 02/12/23 05:43 MCV 90.0 fL (80.0-100.0) 02/12/23 05:43 MCH 30.9 pg (27.0-34.0) 02/12/23 05:43 MCHC 34.3 g/dL (33.0-35.0) 02/12/23 05:43 RDW 13.5 % (11.6-16.5) 02/12/23 05:43 Plt Count 122 X10^3/uL (150.0-450.0) L 02/12/23 05:43 MPV 9.3 fL (7.4-11.0) 02/12/23 05:43 Neut % (Auto) 48.7 % (42.0-75.0) 02/12/23 05:43 Lymph % (Auto) 37.7 % (21.0-51.0) 02/12/23 05:43 [place] % (Auto) 11.6 % (0.0-13.0) 02/12/23 05:43 Eos % (Auto) 1.1 % (0.9-2.9) 02/12/23 05:43 Baso % (Auto) 0.9 % (0.2-1.0) 02/12/23 05:43 Neut # (Auto) 2.6 x10^3/uL (2.2-4.8) 02/12/23 05:43 Lymph # (Auto) 2.0 X10^3/uL (1.3-2.9) 02/12/23 05:43 [place] # (Auto) 0.6 x10^3/uL (0.3-0.8) 02/12/23 05:43 Eos # (Auto) 0.1 x10^3/uL (0.0-0.2) 02/12/23 05:43 Baso # (Auto) 0.0 X10^3/uL (0.0-0.1) 02/12/23 05:43 Absolute Nucleated RBC 0.1 /100WBC 02/12/23 05:43 PT 13.2 SECONDS (11.8-14.3) 02/06/23 11:56 INR Target Range - 02/06/23 11:56 INR 1.02 (0.8-1.3) 02/06/23 11:56 APTT 28.3 SECONDS (22.9-36.5) 02/06/23 11:56 PTT Comment - 02/06/23 11:56 Sodium 139 mmol/L (136-145) 02/12/23 05:43 Corrected Sodium TNP 02/12/23 05:43 Potassium 3.8 mmol/L (3.5-5.1) 02/12/23 05:43 Chloride 105 mmol/L (98-107) 02/12/23 05:43 Carbon Dioxide 25.3 mmol/L (21-32) 02/12/23 05:43 BUN 31 mg/dL (7-18) H 02/12/23 05:43 Creatinine 1.60 mg/dL (0.70-1.30) H 02/12/23 05:43 Est GFR (MDRD) Af Amer 55 (>60) L 02/12/23 05:43 Est GFR (MDRD) Non-Af 46 (>60) L 02/12/23 05:43 Glucose 106 mg/dL (65-99) H 02/12/23 05:43 Calcium 8.2 mg/dL (8.5-10.1) L 02/12/23 05:43 Corrected Calcium TNP 02/12/23 05:43 Magnesium 2.1 mg/dL (2.0-2.9) 02/07/23 04:59 Total Bilirubin 0.40 mg/dL (0.2-1.0) 02/12/23 05:43 AST 13 Units/L (15-37) L 02/12/23 05:43 ALT 15 Units/L (12-78) 02/12/23 05:43 Alkaline Phosphatase 58 Units/L (46-116) 02/12/23 05:43 Creatine Kinase 82 Units/L (39-308) 02/06/23 11:56 Troponin I High Sens 46.9 ng/L (4.0-60.0) 02/06/23 11:56 B-Natriuretic Peptide 341 pg/mL (0-79) H 02/12/23 05:43 Total Protein 6.3 g/dL (6.4-8.2) L 02/12/23 05:43 Albumin 3.7 g/dL (3.4-5.0) 02/12/23 05:43 Globulin 2.6 g/dL (2.5-4.5) 02/12/23 05:43 Albumin/Globulin Ratio 1.4 Ratio (1.1-2.1) 02/12/23 05:43 Specimen Type Clean catch urine 02/07/23 06:44 Urine Color Straw (YELLOW) 02/07/23 06:44 Urine Appearance Clear (CLEAR) 02/07/23 06:44 Urine pH 6.5 (5.0 - 8.0) 02/07/23 06:44 Ur Specific [place] 1.015 (1.000-1.030) 02/07/23 06:44 Urine Protein Negative (NEGATIVE) 02/07/23 06:44 Urine Glucose (UA) Negative (NEGATIVE) 02/07/23 06:44 Urine Ketones Negative (NEGATIVE) 02/07/23 06:44 Urine Blood Negative (NEGATIVE) 02/07/23 06:44 Urine Nitrite Negative (NEGATIVE) 02/07/23 06:44 Urine Bilirubin Negative (NEGATIVE) 02/07/23 06:44 Urine Urobilinogen Normal (NORMAL) 02/07/23 06:44 Ur Leukocyte Esterase Negative (NEGATIVE) 02/07/23 06:44 Plan (1) Acute CVA (cerebrovascular accident): Status: Acute Plan: LASIX 20MG IV DAILY, NICOTINE PATCH 21MG DAILY, PLAVIX 75MG DAILY, ECOTRIN 325MG DAILY, ROSUVASTATIN 10MG HS, PT/OT, RESUME HOME MEDS (2) Mild congestive heart failure: Status: Acute Plan: LASIX 20MG IV DAILY, RESUME COREG, ALDACTONE, ALBUTEROL NEBS BID, PULMICORT NEBS BID (3) Paresthesia of left arm and leg: Status: Acute Plan: Monitor for improvement past CVA. (4) Left-sided weakness: Status: Acute Plan: Physical therapy (5) Unsteady gait: Status: Acute Plan: PT/OT (6) HTN (hypertension): Status: Chronic Qualifiers: Hypertension type: primary hypertension Qualified Code(s): I10 - Essential (primary) hypertension Plan: RESUME NORVASC, VASOTEC (7) Hyperlipidemia: Status: Chronic Qualifiers: Hyperlipidemia type: mixed hyperlipidemia Qualified Code(s): E78.2 - Mixed hyperlipidemia Plan: CONTINUE TRICOR, ROSUVASTATIN (8) Coronary artery disease: Status: Chronic Qualifiers: Coronary Disease-Associated Artery/Lesion type: bypass graft [place] vs. transplanted heart: [place] heart Associated angina: without angina Qualified Code(s): I25.810 - Atherosclerosis of coronary artery bypass graft(s) without angina pectoris Plan: CONTINUE PLAVIX (9) BPH (benign prostatic hyperplasia): Status: Chronic Qualifiers: Lower urinary tract symptom presence: symptoms absent Qualified Code(s): N40.0 - Benign prostatic hyperplasia without lower urinary tract symp toms Plan: CONTINUE TAMSULOSIN (10) Seizure disorder: Status: Chronic Plan: CONTINUE DIVALPROEX
[2023-02-13] MEDS: CRESTOR TAB 10 MG PO SCH (21:04)
[2023-02-13] MEDS: FLOMAX PO SCH (21:05)
[2023-02-14] MEDS: VALIUM PO PRN ×2 (01:36→15:06)
[2023-02-14] MEDS: PATIENT'S HOME MEDICATION PO PRN ×3 (05:05→21:49)
[2023-02-14 06:27] LABS: BASOPHILS % (AUTO) 0.4 % (0.2-1.0); EOSINOPHILS # (AUTO) 0.1 x10^3/uL (0.0-0.2); EOSINOPHILS % (AUTO) 1.2 % (0.9-2.9); HEMATOCRIT 37.1 % (42.0-54.0); HEMOGLOBIN 12.6 g/dL (13.5-18.0); LYMPHOCYTES # (AUTO) 1.9 X10^3/uL (1.3-2.9); LYMPHOCYTES % (AUTO) 34.3 % (21.0-51.0); MEAN CORPUSCULAR HEMOGLOBIN 30.9 pg (27.0-34.0); MEAN CORPUSCULAR HGB CONC 34.1 g/dL (33.0-35.0); MEAN CORPUSCULAR VOLUME 90.7 fL (80.0-100.0); MEAN PLATELET VOLUME 9.5 fL (7.4-11.0); MONOCYTES # (AUTO) 0.8 x10^3/uL (0.3-0.8); MONOCYTES % (AUTO) 13.8 % (0.0-13.0); NEUTROPHILS # (AUTO) 2.8 x10^3/uL (2.2-4.8); NEUTROPHILS % (AUTO) 50.3 % (42.0-75.0); PLATELET COUNT 120 X10^3/uL (150.0-450.0); RED BLOOD COUNT 4.09 X10^6/uL (4.7-6.0); RED CELL DISTRIBUTION WIDTH 13.3 % (11.6-16.5); WHITE BLOOD COUNT 5.6 X10^3/uL (3.6-10.0)
[2023-02-14 06:40] LABS: ALANINE AMINOTRANSFERASE 15 Units/L (12-78); ALBUMIN 3.7 g/dL (3.4-5.0); ALKALINE PHOSPHATASE 56 Units/L (46-116); ASPARTATE AMINO TRANSFERASE 11 Units/L (15-37); BLOOD UREA NITROGEN 30 mg/dL (7-18); CALCIUM 8.5 mg/dL (8.5-10.1); CARBON DIOXIDE 27.1 mmol/L (21-32); CHLORIDE 105 mmol/L (98-107); COR NA(FOR HYPERGLY) 141 mmol/L (136-145); CREATININE 1.75 mg/dL (0.70-1.30); GLUCOSE 118 mg/dL (65-99); POTASSIUM 3.8 mmol/L (3.5-5.1); SODIUM 141 mmol/L (136-145); TOTAL PROTEIN 6.2 g/dL (6.4-8.2); eGFR NON BLACK RACES 41 (>60)
[2023-02-14] MEDS: NICOTINE PATCH TD SCH (08:25)
[2023-02-14] MEDS: ALDACTONE TAB 25 MG PO SCH (08:26)
[2023-02-14] MEDS: TRICOR TAB 145 MG PO SCH (08:26)
[2023-02-14] MEDS: COREG TAB 12.5 MG PO SCH ×2 (08:26→21:48)
[2023-02-14] MEDS: SINGULAIR TAB 10 MG PO SCH (08:26)
[2023-02-14] MEDS: PLAVIX PO SCH (08:26)
[2023-02-14] MEDS: ECOTRIN TAB 325 MG PO SCH (08:26)
[2023-02-14] MEDS: NORVASC TAB 10 MG PO SCH (08:26)
[2023-02-14] MEDS: LOVENOX INJ 40 MG SYR SC SCH (08:26)
[2023-02-14] MEDS: LASIX IVP SCH (08:27)
[2023-02-14] MEDS: VASOTEC TAB 10 MG PO SCH (08:27)
[2023-02-14] MEDS: PROVENTIL NEB TX 0.083% 2.5MG/ 3ML NEB SCH ×2 (09:30→20:38)
[2023-02-14] MEDS: PULMICORT NEB TX 0.5 MG NEB SCH ×2 (09:30→20:38)
--- NOTE | 2023-02-14 16:41 | PCM.PROG ---
Progress Note Progress Note for Day of Date of Exam: 02/14/23 Subjective Subjective: IS CURRENTLY OBSERVATION STATUS FOR TREATMENT OF ACUTE CVA, CONGESTIVE HEART FAILURE, LEFT SIDED WEAKNESS, LEFT SIDED PARASTHESIA, AND UNSTEADY GAIT. HE HAS A PMH OF HTN, CHF, PACEMAKER, HYPERLIPDEMIA, CAD, BPH, AND SEIZURE DISORDER. TODAY, HE IS ALERT AND ORIENTED, SITTING UP IN BED ON MORNING ROUNDS. HE CONTINUES TO COMPLAIN OF WEAKNESS AND TINGLING OF THE LEFT UPPER AND LOWER EXTREMITY. NURSES REPORT THAT PATIENT HAS BEEN AMBULATING IN THE ROOM WITH THE USE OF A WALKER. THEY REPORT THAT HE HAS IMPAIRED COORDINATION. HE DENIES SHORTNESS OF BREATH THIS MORNING. UPON EXAMINATION, PATIENT IS ABLE TO ANSWER QUESTIONS AND FOLLOW INSTRUCTIONS WITHOUT DIFFICULTY. HEART IS REGULAR IN RATE AND RHYTHM. BILATERAL LUNGS ARE NOTED WITH DIMINISHED LUNG SOUNDS THROUGHOUT. ABDOMEN IS ROUND, SOFT, AND NON-TENDER WITH NORMAL BOWEL SOUNDS NOTED IN ALL QUADRANTS. GOOD RANGE OF MOTION NOTED TO UPPER AND LOWER EXTREMITIES WITH NO EDEMA NOTED. HE HAS 5/5 POWER TO RIGHT UPPER AND LOWER EXTREMITIES. 3/5 POWER NOTED TO LEFT UPPER AND LOWER EXTREMITY. Thursday, 14 February 2023 Patient still doing well and has no new complaints. Still reports his [place] is getting stronger however he has no coordination when he is trying to walk in the is having to hold onto people to keep from falling. He is still 3-4/5 in the left upper extremity. We currently are still waiting for his bed for inpatient rehabilitation in [place], [place]. Hopefully we can get him transferred there at the beginning of the week in 1 or 2 days. Continue current treatment. Past Medical Family Social History Past Med/Fam/Surg Hx: No changes since H&P Allergies: Allergies codeine Allergy (Unknown, Verified 02/09/23 01:46) Reason: Drug allergy levofloxacin [Levaquin] Allergy (Unknown, Verified 02/09/23 01:46) Reason: Drug allergy morphine Allergy (Unknown, Verified 02/09/23 01:46) Reason: Drug allergy Review of Systems ROS: No change since H&P Vital Signs and I&O's Vital Signs: Vital Signs Temperature 97.4 F Temperature 98.1 F Pulse Rate [Right] 70 Pulse Rate [Right] 74 Pulse Rate 78 Respiratory Rate 20 Respiratory Rate 20 Blood Pressure [Left Arm] 127/75 Blood Pressure [Left Arm] 145/80 O2 Sat by Pulse Oximetry 95 O2 Sat by Pulse Oximetry 96 O2 Sat by Pulse Oximetry 96 Intake and Output: Intake & Output 02/12/23 02/13/23 02/14/23 02/15/23 11:59 11:59 11:59 11:59 Intake Total 1170 / 1170 1370 / 1370 1290 / 1290 360 / 360 Output Total 1250 / 1250 1100 / 1100 1600 / 1600 900 / 900 Balance -80 / -80 270 / 270 -310 / -310 -540 / -540 Physical Exam Oriented: Normal Eyes: Normal Ear: Normal Nose: Normal Throat: Normal Respiratory: Generalized and Diminished Cardiovascular: Normal : Normal Auscultation: Bowel Sounds: Normal Tenderness: Normal Skin: Normal Musculoskeletal: Left, Arm, Leg and Sensory Deficit Psychiatric: Normal Mood Description: Calm and Appropriate Affect: Normal Speech Pattern: Clear and Appropriate Laboratory and Diagnostics Result Diagrams: 02/14/23 05:41 02/14/23 05:41 Labs: Laboratory WBC 5.6 X10^3/uL (3.6-10.0) 02/14/23 05:41 RBC 4.09 X10^6/uL (4.7-6.0) L 02/14/23 05:41 Hgb 12.6 g/dL (13.5-18.0) L 02/14/23 05:41 Hct 37.1 % (42.0-54.0) L 02/14/23 05:41 MCV 90.7 fL (80.0-100.0) 02/14/23 05:41 MCH 30.9 pg (27.0-34.0) 02/14/23 05:41 MCHC 34.1 g/dL (33.0-35.0) 02/14/23 05:41 RDW 13.3 % (11.6-16.5) 02/14/23 05:41 Plt Count 120 X10^3/uL (150.0-450.0) L 02/14/23 05:41 MPV 9.5 fL (7.4-11.0) 02/14/23 05:41 Neut % (Auto) 50.3 % (42.0-75.0) 02/14/23 05:41 Lymph % (Auto) 34.3 % (21.0-51.0) 02/14/23 05:41 [place] % (Auto) 13.8 % (0.0-13.0) H 02/14/23 05:41 Eos % (Auto) 1.2 % (0.9-2.9) 02/14/23 05:41 Baso % (Auto) 0.4 % (0.2-1.0) 02/14/23 05:41 Neut # (Auto) 2.8 x10^3/uL (2.2-4.8) 02/14/23 05:41 Lymph # (Auto) 1.9 X10^3/uL (1.3-2.9) 02/14/23 05:41 [place] # (Auto) 0.8 x10^3/uL (0.3-0.8) 02/14/23 05:41 Eos # (Auto) 0.1 x10^3/uL (0.0-0.2) 02/14/23 05:41 Baso # (Auto) 0.0 X10^3/uL (0.0-0.1) 02/14/23 05:41 Absolute Nucleated RBC 0.0 /100WBC 02/14/23 05:41 PT 13.2 SECONDS (11.8-14.3) 02/06/23 11:56 INR Target Range - 02/06/23 11:56 INR 1.02 (0.8-1.3) 02/06/23 11:56 APTT 28.3 SECONDS (22.9-36.5) 02/06/23 11:56 PTT Comment - 02/06/23 11:56 Sodium 141 mmol/L (136-145) 02/14/23 05:41 Corrected Sodium 141 mmol/L (136-145) 02/14/23 05:41 Potassium 3.8 mmol/L (3.5-5.1) 02/14/23 05:41 Chloride 105 mmol/L (98-107) 02/14/23 05:41 Carbon Dioxide 27.1 mmol/L (21-32) 02/14/23 05:41 BUN 30 mg/dL (7-18) H 02/14/23 05:41 Creatinine 1.75 mg/dL (0.70-1.30) H 02/14/23 05:41 Est GFR (MDRD) Af Amer 50 (>60) L 02/14/23 05:41 Est GFR (MDRD) Non-Af 41 (>60) L 02/14/23 05:41 Glucose 118 mg/dL (65-99) H 02/14/23 05:41 Calcium 8.5 mg/dL (8.5-10.1) 02/14/23 05:41 Corrected Calcium TNP 02/14/23 05:41 Magnesium 2.1 mg/dL (2.0-2.9) 02/07/23 04:59 Total Bilirubin 0.30 mg/dL (0.2-1.0) 02/14/23 05:41 AST 11 Units/L (15-37) L 02/14/23 05:41 ALT 15 Units/L (12-78) 02/14/23 05:41 Alkaline Phosphatase 56 Units/L (46-116) 02/14/23 05:41 Creatine Kinase 82 Units/L (39-308) 02/06/23 11:56 Troponin I High Sens 46.9 ng/L (4.0-60.0) 02/06/23 11:56 B-Natriuretic Peptide 191 pg/mL (0-79) H 02/14/23 05:41 Total Protein 6.2 g/dL (6.4-8.2) L 02/14/23 05:41 Albumin 3.7 g/dL (3.4-5.0) 02/14/23 05:41 Globulin 2.5 g/dL (2.5-4.5) 02/14/23 05:41 Albumin/Globulin Ratio 1.5 Ratio (1.1-2.1) 02/14/23 05:41 Specimen Type Clean catch urine 02/07/23 06:44 Urine Color Straw (YELLOW) 02/07/23 06:44 Urine Appearance Clear (CLEAR) 02/07/23 06:44 Urine pH 6.5 (5.0 - 8.0) 02/07/23 06:44 Ur Specific [place] 1.015 (1.000-1.030) 02/07/23 06:44 Urine Protein Negative (NEGATIVE) 02/07/23 06:44 Urine Glucose (UA) Negative (NEGATIVE) 02/07/23 06:44 Urine Ketones Negative (NEGATIVE) 02/07/23 06:44 Urine Blood Negative (NEGATIVE) 02/07/23 06:44 Urine Nitrite Negative (NEGATIVE) 02/07/23 06:44 Urine Bilirubin Negative (NEGATIVE) 02/07/23 06:44 Urine Urobilinogen Normal (NORMAL) 02/07/23 06:44 Ur Leukocyte Esterase Negative (NEGATIVE) 02/07/23 06:44 Plan (1) Acute CVA (cerebrovascular accident): Status: Acute Plan: LASIX 20MG IV DAILY, NICOTINE PATCH 21MG DAILY, PLAVIX 75MG DAILY, ECOTRIN 325MG DAILY, ROSUVASTATIN 10MG HS, PT/OT, RESUME HOME MEDS (2) Mild congestive heart failure: Status: Acute Plan: LASIX 20MG IV DAILY, RESUME COREG, ALDACTONE, ALBUTEROL NEBS BID, PULMICORT NEBS BID (3) Paresthesia of left arm and leg: Status: Acute Plan: Monitor for improvement past CVA. (4) Left-sided weakness: Status: Acute Plan: Physical therapy (5) Unsteady gait: Status: Acute Plan: PT/OT (6) HTN (hypertension): Status: Chronic Qualifiers: Hypertension type: primary hypertension Qualified Code(s): I10 - Essential (primary) hypertension Plan: RESUME NORVASC, VASOTEC (7) Hyperlipidemia: Status: Chronic Qualifiers: Hyperlipidemia type: mixed hyperlipidemia Qualified Code(s): E78.2 - Mixed hyperlipidemia Plan: CONTINUE TRICOR, ROSUVASTATIN (8) Coronary artery disease: Status: Chronic Qualifiers: Coronary Disease-Associated Artery/Lesion type: bypass graft [place] vs. transplanted heart: three affiliated heart Associated angina: without angina Qualified Code(s): I25.810 - Atherosclerosis of coronary artery bypass graft(s) without angina pectoris Plan: CONTINUE PLAVIX (9) BPH (benign prostatic hyperplasia): Status: Chronic Qualifiers: Lower urinary tract symptom presence: symptoms absent Qualified Code(s): N40.0 - Benign prostatic hyperplasia without lower urinary tract symptoms Plan: CONTINUE TAMSULOSIN (10) Seizure disorder: Status: Chronic Plan: CONTINUE DIVALPROEX
[2023-02-14] MEDS: CRESTOR TAB 10 MG PO SCH (21:48)
[2023-02-14] MEDS: FLOMAX PO SCH (21:48)
[2023-02-15] MEDS: VALIUM PO PRN ×2 (00:35→21:46)
[2023-02-15] MEDS: PATIENT'S HOME MEDICATION PO PRN ×4 (04:43→21:46)
[2023-02-15 06:09] LABS: BASOPHILS % (AUTO) 0.5 % (0.2-1.0); EOSINOPHILS # (AUTO) 0.1 x10^3/uL (0.0-0.2); EOSINOPHILS % (AUTO) 1.1 % (0.9-2.9); HEMATOCRIT 38.4 % (42.0-54.0); HEMOGLOBIN 13.1 g/dL (13.5-18.0); LYMPHOCYTES # (AUTO) 1.9 X10^3/uL (1.3-2.9); LYMPHOCYTES % (AUTO) 33.9 % (21.0-51.0); MEAN CORPUSCULAR HGB CONC 34.2 g/dL (33.0-35.0); MEAN CORPUSCULAR VOLUME 90.6 fL (80.0-100.0); MEAN PLATELET VOLUME 9.5 fL (7.4-11.0); MONOCYTES # (AUTO) 0.7 x10^3/uL (0.3-0.8); MONOCYTES % (AUTO) 12.1 % (0.0-13.0); NEUTROPHILS # (AUTO) 2.9 x10^3/uL (2.2-4.8); NEUTROPHILS % (AUTO) 52.4 % (42.0-75.0); PLATELET COUNT 122 X10^3/uL (150.0-450.0); RED BLOOD COUNT 4.23 X10^6/uL (4.7-6.0); RED CELL DISTRIBUTION WIDTH 13.5 % (11.6-16.5); WHITE BLOOD COUNT 5.6 X10^3/uL (3.6-10.0)
[2023-02-15 06:37] LABS: ALANINE AMINOTRANSFERASE 17 Units/L (12-78); ALBUMIN 3.9 g/dL (3.4-5.0); ALKALINE PHOSPHATASE 58 Units/L (46-116); ASPARTATE AMINO TRANSFERASE 14 Units/L (15-37); BLOOD UREA NITROGEN 29 mg/dL (7-18); CALCIUM 8.5 mg/dL (8.5-10.1); CARBON DIOXIDE 26.4 mmol/L (21-32); CHLORIDE 104 mmol/L (98-107); COR NA(FOR HYPERGLY) 140 mmol/L (136-145); CREATININE 1.76 mg/dL (0.70-1.30); GLUCOSE 113 mg/dL (65-99); SODIUM 140 mmol/L (136-145); TOTAL PROTEIN 6.4 g/dL (6.4-8.2); eGFR NON BLACK RACES 41 (>60)
[2023-02-15] MEDS: PLAVIX PO SCH (08:59)
[2023-02-15] MEDS: LOVENOX INJ 40 MG SYR SC SCH (08:59)
[2023-02-15] MEDS: NORVASC TAB 10 MG PO SCH (08:59)
[2023-02-15] MEDS: COREG TAB 12.5 MG PO SCH ×2 (08:59→21:44)
[2023-02-15] MEDS: ECOTRIN TAB 325 MG PO SCH (08:59)
[2023-02-15] MEDS: SINGULAIR TAB 10 MG PO SCH (08:59)
[2023-02-15] MEDS: ALDACTONE TAB 25 MG PO SCH (08:59)
[2023-02-15] MEDS: TRICOR TAB 145 MG PO SCH (08:59)
[2023-02-15] MEDS: LASIX IVP SCH (09:00)
[2023-02-15] MEDS: VASOTEC TAB 10 MG PO SCH (09:00)
[2023-02-15] MEDS: NICOTINE PATCH TD SCH (09:01)
--- NOTE | 2023-02-15 18:21 | PCM.PROG ---
Progress Note Progress Note for Day of Date of Exam: 02/15/23 Subjective Subjective: Patient is lying in bed this morning has no complaints today. He did well last night and yesterday afternoon with no acute events. He is still having difficulty ambulating because of loss of coordination and this makes him high risk for falling. Currently awaiting inpatient rehab placement in [place], [place]. Past Medical Family Social History Past Med/Fam/Surg Hx: No changes since H&P Allergies: Allergies codeine Allergy (Unknown, Verified 02/09/23 01:46) Reason: Drug allergy levofloxacin [Levaquin] Allergy (Unknown, Verified 02/09/23 01:46) Reason: Drug allergy morphine Allergy (Unknown, Verified 02/09/23 01:46) Reason: Drug allergy Review of Systems ROS: No change since H&P Vital Signs and I&O's Vital Signs: Vital Signs Temperature 97.9 F Temperature 97.9 F Pulse Rate [Right] 86 Pulse Rate [Right] 60 Respiratory Rate 18 Respiratory Rate 18 Blood Pressure [Left Arm] 122/70 Blood Pressure [Left Arm] 126/78 O2 Sat by Pulse Oximetry 98 O2 Sat by Pulse Oximetry 94 Intake and Output: Intake & Output 02/13/23 02/14/23 02/15/23 02/16/23 11:59 11:59 11:59 11:59 Intake Total 1370 / 1370 1290 / 1290 910 / 910 700 / 700 Output Total 1100 / 1100 1600 / 1600 1475 / 1475 700 / 700 Balance 270 / 270 -310 / -310 -565 / -565 0 / 0 Physical Exam Oriented: Normal Eyes: Normal Ear: Normal Nose: Normal Throat: Normal Respiratory: Generalized and Diminished Cardiovascular: Normal : Normal Auscultation: Bowel Sounds: Normal Tenderness: Normal Skin: Normal Musculoskeletal: Left, Arm, Leg and Sensory Deficit Psychiatric: Normal Mood Description: Calm and Appropriate Affect: Normal Speech Pattern: Clear and Appropriate Laboratory and Diagnostics Result Diagrams: 02/15/23 05:10 02/15/23 05:10 Labs: Laboratory WBC 5.6 X10^3/uL (3.6-10.0) 02/15/23 05:10 RBC 4.23 X10^6/uL (4.7-6.0) L 02/15/23 05:10 Hgb 13.1 g/dL (13.5-18.0) L 02/15/23 05:10 Hct 38.4 % (42.0-54.0) L 02/15/23 05:10 MCV 90.6 fL (80.0-100.0) 02/15/23 05:10 MCH 31.0 pg (27.0-34.0) 02/15/23 05:10 MCHC 34.2 g/dL (33.0-35.0) 02/15/23 05:10 RDW 13.5 % (11.6-16.5) 02/15/23 05:10 Plt Count 122 X10^3/uL (150.0-450.0) L 02/15/23 05:10 MPV 9.5 fL (7.4-11.0) 02/15/23 05:10 Neut % (Auto) 52.4 % (42.0-75.0) 02/15/23 05:10 Lymph % (Auto) 33.9 % (21.0-51.0) 02/15/23 05:10 [place] % (Auto) 12.1 % (0.0-13.0) 02/15/23 05:10 Eos % (Auto) 1.1 % (0.9-2.9) 02/15/23 05:10 Baso % (Auto) 0.5 % (0.2-1.0) 02/15/23 05:10 Neut # (Auto) 2.9 x10^3/uL (2.2-4.8) 02/15/23 05:10 Lymph # (Auto) 1.9 X10^3/uL (1.3-2.9) 02/15/23 05:10 [place] # (Auto) 0.7 x10^3/uL (0.3-0.8) 02/15/23 05:10 Eos # (Auto) 0.1 x10^3/uL (0.0-0.2) 02/15/23 05:10 Baso # (Auto) 0.0 X10^3/uL (0.0-0.1) 02/15/23 05:10 Absolute Nucleated RBC 0.0 /100WBC 02/15/23 05:10 PT 13.2 SECONDS (11.8-14.3) 02/06/23 11:56 INR Target Range - 02/06/23 11:56 INR 1.02 (0.8-1.3) 02/06/23 11:56 APTT 28.3 SECONDS (22.9-36.5) 02/06/23 11:56 PTT Comment - 02/06/23 11:56 Sodium 140 mmol/L (136-145) 02/15/23 05:10 Corrected Sodium 140 mmol/L (136-145) 02/15/23 05:10 Potassium 4.0 mmol/L (3.5-5.1) 02/15/23 05:10 Chloride 104 mmol/L (98-107) 02/15/23 05:10 Carbon Dioxide 26.4 mmol/L (21-32) 02/15/23 05:10 BUN 29 mg/dL (7-18) H 02/15/23 05:10 Creatinine 1.76 mg/dL (0.70-1.30) H 02/15/23 05:10 Est GFR (MDRD) Af Amer 50 (>60) L 02/15/23 05:10 Est GFR (MDRD) Non-Af 41 (>60) L 02/15/23 05:10 Glucose 113 mg/dL (65-99) H 02/15/23 05:10 Calcium 8.5 mg/dL (8.5-10.1) 02/15/23 05:10 Corrected Calcium TNP 02/15/23 05:10 Magnesium 2.1 mg/dL (2.0-2.9) 02/07/23 04:59 Total Bilirubin 0.30 mg/dL (0.2-1.0) 02/15/23 05:10 AST 14 Units/L (15-37) L 02/15/23 05:10 ALT 17 Units/L (12-78) 02/15/23 05:10 Alkaline Phosphatase 58 Units/L (46-116) 02/15/23 05:10 Creatine Kinase 82 Units/L (39-308) 02/06/23 11:56 Troponin I High Sens 46.9 ng/L (4.0-60.0) 02/06/23 11:56 B-Natriuretic Peptide 191 pg/mL (0-79) H 02/14/23 05:41 Total Protein 6.4 g/dL (6.4-8.2) 02/15/23 05:10 Albumin 3.9 g/dL (3.4-5.0) 02/15/23 05:10 Globulin 2.5 g/dL (2.5-4.5) 02/15/23 05:10 Albumin/Globulin Ratio 1.6 Ratio (1.1-2.1) 02/15/23 05:10 Specimen Type Clean catch urine 02/07/23 06:44 Urine Color Straw (YELLOW) 02/07/23 06:44 Urine Appearance Clear (CLEAR) 02/07/23 06:44 Urine pH 6.5 (5.0 - 8.0) 02/07/23 06:44 Ur Specific [place] 1.015 (1.000-1.030) 02/07/23 06:44 Urine Protein Negative (NEGATIVE) 02/07/23 06:44 Urine Glucose (UA) Negative (NEGATIVE) 02/07/23 06:44 Urine Ketones Negative (NEGATIVE) 02/07/23 06:44 Urine Blood Negative (NEGATIVE) 02/07/23 06:44 Urine Nitrite Negative (NEGATIVE) 02/07/23 06:44 Urine Bilirubin Negative (NEGATIVE) 02/07/23 06:44 Urine Urobilinogen Normal (NORMAL) 02/07/23 06:44 Ur Leukocyte Esterase Negative (NEGATIVE) 02/07/23 06:44 Plan (1) Acute CVA (cerebrovascular accident): Status: Acute Plan: Continue aspirin 325 mg daily along with clopidogrel 75 mg daily. C ontinue rosuvastatin and Tricor. (2) Mild congestive heart failure: Status: Acute Plan: LASIX 20MG IV DAILY, RESUME COREG, ALDACTONE, ALBUTEROL NEBS BID, PULMICORT NEBS BID (3) Paresthesia of left arm and leg: Status: Acute Plan: Monitor for improvement past CVA. (4) Left-sided weakness: Status: Acute Plan: Physical therapy (5) Unsteady gait: Status: Acute Plan: PT/OT (6) HTN (hypertension): Status: Chronic Qualifiers: Hypertension type: primary hypertension Qualified Code(s): I10 - Essential (primary) hypertension Plan: RESUME NORVASC, VASOTEC (7) Hyperlipidemia: Status: Chronic Qualifiers: Hyperlipidemia type: mixed hyperlipidemia Qualified Code(s): E78.2 - Mixed hyperlipidemia Plan: CONTINUE TRICOR, ROSUVASTATIN (8) Coronary artery disease: Status: Chronic Qualifiers: Coronary Disease-Associated Artery/Lesion type: bypass graft [place] vs. transplanted heart: [place] heart Associated angina: without angina Qualified Code(s): I25.810 - Atherosclerosis of coronary artery bypass graft(s) without angina pectoris Plan: CONTINUE PLAVIX (9) BPH (benign prostatic hyperplasia): Status: Chronic Qualifiers: Lower urinary tract symptom presence: symptoms absent Qualified Code(s): N40.0 - Benign prostatic hyperplasia without lower urinary tract sympt oms Plan: CONTINUE TAMSULOSIN (10) Seizure disorder: Status: Chronic Plan: CONTINUE DIVALPROEX
[2023-02-15] MEDS: PROVENTIL NEB TX 0.083% 2.5MG/ 3ML NEB SCH (20:55)
[2023-02-15] MEDS: PULMICORT NEB TX 0.5 MG NEB SCH (20:55)
[2023-02-15] MEDS: FLOMAX PO SCH (21:44)
[2023-02-15] MEDS: CRESTOR TAB 10 MG PO SCH (21:46)
[2023-02-16] MEDS: PATIENT'S HOME MEDICATION PO PRN ×2 (03:10→10:54)
[2023-02-16 04:02] VITALS: RESP 20
[2023-02-16 06:06] LABS: BASOPHILS % (AUTO) 0.5 % (0.2-1.0); EOSINOPHILS # (AUTO) 0.1 x10^3/uL (0.0-0.2); EOSINOPHILS % (AUTO) 1.4 % (0.9-2.9); HEMATOCRIT 36.2 % (42.0-54.0); HEMOGLOBIN 12.5 g/dL (13.5-18.0); LYMPHOCYTES # (AUTO) 1.9 X10^3/uL (1.3-2.9); LYMPHOCYTES % (AUTO) 36.1 % (21.0-51.0); MEAN CORPUSCULAR HEMOGLOBIN 31.3 pg (27.0-34.0); MEAN CORPUSCULAR HGB CONC 34.6 g/dL (33.0-35.0); MEAN CORPUSCULAR VOLUME 90.4 fL (80.0-100.0); MEAN PLATELET VOLUME 9.7 fL (7.4-11.0); MONOCYTES # (AUTO) 0.7 x10^3/uL (0.3-0.8); MONOCYTES % (AUTO) 14.1 % (0.0-13.0); NEUTROPHILS # (AUTO) 2.5 x10^3/uL (2.2-4.8); NEUTROPHILS % (AUTO) 47.9 % (42.0-75.0); PLATELET COUNT 130 X10^3/uL (150.0-450.0); RED CELL DISTRIBUTION WIDTH 13.5 % (11.6-16.5); WHITE BLOOD COUNT 5.2 X10^3/uL (3.6-10.0)
[2023-02-16 06:25] LABS: ALANINE AMINOTRANSFERASE 15 Units/L (12-78); ALBUMIN 3.6 g/dL (3.4-5.0); ALKALINE PHOSPHATASE 55 Units/L (46-116); ASPARTATE AMINO TRANSFERASE 12 Units/L (15-37); BLOOD UREA NITROGEN 28 mg/dL (7-18); CALCIUM 8.4 mg/dL (8.5-10.1); CARBON DIOXIDE 27.5 mmol/L (21-32); CHLORIDE 104 mmol/L (98-107); COR NA(FOR HYPERGLY) 140 mmol/L (136-145); CREATININE 1.95 mg/dL (0.70-1.30); GLUCOSE 147 mg/dL (65-99); SODIUM 139 mmol/L (136-145); TOTAL PROTEIN 6.1 g/dL (6.4-8.2); eGFR NON BLACK RACES 36 (>60)
[2023-02-16 08:37] VITALS: BP 142/65; TEMP 98.5
[2023-02-16] MEDS: NICOTINE PATCH TD SCH (08:56)
[2023-02-16] MEDS: PROVENTIL NEB TX 0.083% 2.5MG/ 3ML NEB SCH (08:56)
[2023-02-16] MEDS: PULMICORT NEB TX 0.5 MG NEB SCH (08:56)
[2023-02-16 08:57] VITALS: PULSE 71; O2SAT 95
[2023-02-16] MEDS: NORVASC TAB 10 MG PO SCH (08:57)
[2023-02-16] MEDS: TRICOR TAB 145 MG PO SCH (08:57)
[2023-02-16] MEDS: ECOTRIN TAB 325 MG PO SCH (08:58)
[2023-02-16] MEDS: COREG TAB 12.5 MG PO SCH (08:58)
[2023-02-16] MEDS: VASOTEC TAB 10 MG PO SCH (08:58)
[2023-02-16] MEDS: PLAVIX PO SCH (08:58)
[2023-02-16] MEDS: SINGULAIR TAB 10 MG PO SCH (08:59)
[2023-02-16] MEDS: LASIX IVP SCH (08:59)
[2023-02-16] MEDS: LOVENOX INJ 40 MG SYR SC SCH (08:59)
[2023-02-16] MEDS: ALDACTONE TAB 25 MG PO SCH (08:59)
--- NOTE | 2023-02-16 10:08 | PCM.DCPLAN ---
DISCHARGE SUMMARY Admission Date Date of Admission: 02/07/23 Discharge Date Discharge Date: 02/16/23 Admission Diagnoses (1) Acute CVA (cerebrovascular accident): Status: Acute (2) Mild congestive heart failure: Status: Acute (3) Paresthesia of left arm and leg: Status: Acute (4) Left-sided weakness: Status: Acute (5) Unsteady gait: Status: Acute (6) HTN (hypertension): Status: Chronic (7) Hyperlipidemia: Status: Chronic (8) Coronary artery disease: Status: Chronic (9) BPH (benign prostatic hyperplasia): Status: Chronic (10) Seizure disorder: Status: Chronic Discharge Diagnoses Discharge Diagnosis: 1. Status post CVA with left-sided weakness. 2. Congestive heart failure with exacerbation now resolved. 3. Paresthesia of left arm and leg. 4. Left arm and leg weakness. 5. Unsteady gait. 6. Poor coordination with walking. 7. Coronary artery disease 8. Hyperlipidemia 9. BPH 10. Seizure disorder Discharge Medications Discharge Medications: Home Medication List amlodipine 10 mg tablet 1 tab PO QDAY 02/06/23 [History] enalapril maleate 10 mg tablet 1 tab PO QDAY 02/06/23 [History] diazepam 5 mg tablet (Valium) 5 mg PO QHS 30 days #30 tabs 02/16/23 [Rx] oxycodone-acetaminophen 10 mg-325 mg tablet (Endocet) 1 tab PO Q6H PRN pain 30 days #120 tabs 02/16/23 [Rx] Prescriptions: diazepam [Valium] [facility] oxycodone-acetaminophen [Endocet] TONY BINGH[facility] Hospital Course Vital Signs: Vital Signs Temperature 98.5 F Temperature 98.1 F Pulse Rate [Right] 89 Pulse Rate [Right] 58 Pulse Rate 71 Respiratory Rate 20 Respiratory Rate 20 Blood Pressure [Right Arm] 142/65 Blood Pressure [Left Arm] 114/67 O2 Sat by Pulse Oximetry 95 O2 Sat by Pulse Oximetry 92 O2 Sat by Pulse Oximetry 95 Latest Lab Results: Laboratory Last Values WBC 5.2 X10^3/uL (3.6-10.0) 02/16/23 05:05 RBC 4.00 X10^6/uL (4.7-6.0) L 02/16/23 05:05 Hgb 12.5 g/dL (13.5-18.0) L 02/16/23 05:05 Hct 36.2 % (42.0-54.0) L 02/16/23 05:05 MCV 90.4 fL (80.0-100.0) 02/16/23 05:05 MCH 31.3 pg (27.0-34.0) 02/16/23 05:05 MCHC 34.6 g/dL (33.0-35.0) 02/16/23 05:05 RDW 13.5 % (11.6-16.5) 02/16/23 05:05 Plt Count 130 X10^3/uL (150.0-450.0) L 02/16/23 05:05 MPV 9.7 fL (7.4-11.0) 02/16/23 05:05 Neut % (Auto) 47.9 % (42.0-75.0) 02/16/23 05:05 Lymph % (Auto) 36.1 % (21.0-51.0) 02/16/23 05:05 [place] % (Auto) 14.1 % (0.0-13.0) H 02/16/23 05:05 Eos % (Auto) 1.4 % (0.9-2.9) 02/16/23 05:05 Baso % (Auto) 0.5 % (0.2-1.0) 02/16/23 05:05 Neut # (Auto) 2.5 x10^3/uL (2.2-4.8) 02/16/23 05:05 Lymph # (Auto) 1.9 X10^3/uL (1.3-2.9) 02/16/23 05:05 [place] # (Auto) 0.7 x10^3/uL (0.3-0.8) 02/16/23 05:05 Eos # (Auto) 0.1 x10^3/uL (0.0-0.2) 02/16/23 05:05 Baso # (Auto) 0.0 X10^3/uL (0.0-0.1) 02/16/23 05:05 Absolute Nucleated RBC 0.0 /100WBC 02/16/23 05:05 PT 13.2 SECONDS (11.8-14.3) 02/06/23 11:56 INR Target Range - 02/06/23 11:56 INR 1.02 (0.8-1.3) 02/06/23 11:56 APTT 28.3 SECONDS (22.9-36.5) 02/06/23 11:56 PTT Comment - 02/06/23 11:56 Sodium 139 mmol/L (136-145) 02/16/23 05:05 Corrected Sodium 140 mmol/L (136-145) 02/16/23 05:05 Potassium 4.0 mmol/L (3.5-5.1) 02/16/23 05:05 Chloride 104 mmol/L (98-107) 02/16/23 05:05 Carbon Dioxide 27.5 mmol/L (21-32) 02/16/23 05:05 BUN 28 mg/dL (7-18) H 02/16/23 05:05 Creatinine 1.95 mg/dL (0.70-1.30) H 02/16/23 05:05 Est GFR (MDRD) Af Amer 44 (>60) L 02/16/23 05:05 Est GFR (MDRD) Non-Af 36 (>60) L 02/16/23 05:05 Glucose 147 mg/dL (65-99) H 02/16/23 05:05 Calcium 8.4 mg/dL (8.5-10.1) L 02/16/23 05:05 Corrected Calcium TNP 02/16/23 05:05 Magnesium 2.1 mg/dL (2.0-2.9) 02/07/23 04:59 Total Bilirubin 0.30 mg/dL (0.2-1.0) 02/16/23 05:05 AST 12 Units/L (15-37) L 02/16/23 05:05 ALT 15 Units/L (12-78) 02/16/23 05:05 Alkaline Phosphatase 55 Units/L (46-116) 02/16/23 05:05 Creatine Kinase 82 Units/L (39-308) 02/06/23 11:56 Troponin I High Sens 46.9 ng/L (4.0-60.0) 02/06/23 11:56 B-Natriuretic Peptide 191 pg/mL (0-79) H 02/14/23 05:41 Total Protein 6.1 g/dL (6.4-8.2) L 02/16/23 05:05 Albumin 3.6 g/dL (3.4-5.0) 02/16/23 05:05 Globulin 2.5 g/dL (2.5-4.5) 02/16/23 05:05 Albumin/Globulin Ratio 1.4 Ratio (1.1-2.1) 02/16/23 05:05 Specimen Type Clean catch urine 02/07/23 06:44 Urine Color Straw (YELLOW) 02/07/23 06:44 Urine Appearance Clear (CLEAR) 02/07/23 06:44 Urine pH 6.5 (5.0 - 8.0) 02/07/23 06:44 Ur Specific [place] 1.015 (1.000-1.030) 02/07/23 06:44 Urine Protein Negative (NEGATIVE) 02/07/23 06:44 Urine Glucose (UA) Negative (NEGATIVE) 02/07/23 06:44 Urine Ketones Negative (NEGATIVE) 02/07/23 06:44 Urine Blood Negative (NEGATIVE) 02/07/23 06:44 Urine Nitrite Negative (NEGATIVE) 02/07/23 06:44 Urine Bilirubin Negative (NEGATIVE) 02/07/23 06:44 Urine Urobilinogen Normal (NORMAL) 02/07/23 06:44 Ur Leukocyte Esterase Negative (NEGATIVE) 02/07/23 06:44 Hospital Course: IS A 67 YEAR OLD PATIENT OF . HE HAS A PMH OF ANXIETY, ARTHRITIS, COPD, CAD, CVA, DYSLIPIDEMIA, MIGRAINES, GERD, HEADACHES, HTN, MO, SEIZURES, OSTEOPOROSIS, CABG, TONSILLECTOMY, AND BILATERAL KNEE PAIN. HE PRESENTED TO THE ER WITH COMPLAINTS OF WEAKNESS AND NUMBNESS TO THE LEFT ARM AND LEG. HE REPORTS THAT SYMPTOMS STARTED ABOUT 10 HOURS PRIOR TO ARRIVAL. HE REPORTS THAT HE WAS STANDING UP HOLDING HIS TABLET WHEN THE SYMPTOMS STARTED. HE DROPPED THE TABLET AND FELL. HE REPORTS HAVING UNSTEADY GAIT SINCE THEN. HE DENIES CHEST PAIN OR SHORTNESS OF BREATH. ON ARRIVAL, HIS VITALS WERE: 98.0-84-20-95%-161/89. LABS WERE OBTAINED. WBC 6.4, RBC 4.51, HGB 14.0, HCT 40.7, PLT COUNT 134, PT 132.2, INR 1.02, SODIUM 139, POTASSIUM 3.4, CHLORIDE 103, BUN 14, CREATININE 1.39, GLUCOSE 100, CALCIUM 8.5, TOTAL BILI 0.60, AST 15, ALT 17, ALK PHOS 75, CREATINE KINASE 82, TROPONIN 46.9, TOTAL PROTEIN 7.0, ALBUMIN 4.2. A URINALYSIS WAS OBTAINED AND WAS UNREMARKABLE. A BRAIN CT WAS OBTAINED AND REVEALED: No acute intracranial process. Chronic brain changes. A CHEST XRAY WAS OBTAINED AND REVEALED: Congestive heart failure. EKG WAS OBTAINED AND REVEALED: SINUS RHYTHM WITH FUSION COMPLEXES AND PREMATURE ATRIAL COMPLEXES WITH ABERRANT CONDUCTION. HR 75 BPM. HE WAS ADMITTED TO THE HOSPTIAL FOR FURTHER EVALUATION AND TREATMENT OF TIA, MILD CHF, AND HYPOKALEMIA. HE WAS STARTED ON LASIX 40MG IV DAILY, ALBUTEROL NEBS BID, PULMICORT NEBS BID, NICOTINE PATCH 21MG DAILY, AND HIS HOME MEDICATIONS WERE RESUMED. HOME MEDS INCLUDE: NORVASC, COREG, CATAPRES, PLAVIX, VASOTEC, TRICOR, SINGULAIR, NITROSTAT PRN, ZOCOR, ALDACTONE, FLOMAX, ZANAFLEX, PERCOCET, DIVALPROEX. OTHERWISE, WE WILL FOLLOW-UP WITH AM LABS AND CHEST XRAY AND CONTINUE TO MONITOR. The patient had 3/5 strength in the left arm and left leg. It was noticed that the patient was having trouble coordinating walking after the stroke even with a walker. He walks better with the help of people as he can hold onto them better. We did proceed with a carotid ultrasound that showed mild atherosclerosis and mixed plaque formation of the carotid bulbs in both internal carotid arteries with associated carotid intimal thickening but without evidence for high-grade stenosis or occlusion of the carotid arteries, based on Doppler velocity criteria. The second CT scan was done on February 09, 2023 to see if anything was changing and it showed an acute infarct involving the posterior limb of the right internal capsule. No acute hemorrhage was seen. We also decided to do echocardiogram because of his hi story of congestive heart failure and to rule out any clots that may be inside of his heart. Showed that he had a calculated ejection fraction of 44%. Left ventricle cavity was normal in size and there was mild decrease in global wall motion. Structurally he had a normal mitral valve with mild to moderate regurgitation. There was no tricuspid valve regurgitation. He had moderate tricuspid valve leaflet thickening. There was no evidence of significant pericardial effusion. We proceeded with inpatient physical therapy during his hospital stay and field nurse case manager were working on getting him in in [place], [place] for inpatient physical therapy rehabilitation for a minimum of 2 weeks. This took several days to get a response and insurance to approve of stay he had no significant problems after he was admitted to the hospital. He did complain of some back discomfort last night was given a 5 mg Valium which helped him rest better and help alleviate some muscle spasms that were causing his back pain. We have been given the okay today by the assisted rehab center in [place], [place] so we will be transferring him there later today. Discharge medications he will resume his regular home medications as before. I will add Valium 5 mg at bedtime for insomnia/muscle spasm of his back muscles. I also refilled his oxycodone while he is going over there is of his arthritic condition. Patient is discharged in stable condition and he will be following up with me within a week to 10 days after he is discharged from the inpatient physical rehabilitation center.
== END 2023-02-16 11:00 ==
LOC: ER 23:43 → MED/SURG 23:43
PROVIDERS: ADMIT Internal Medicine; ATTEND Family Medicine